=== PATIENT | female | born 1940 | race Caucasian/White ===

== ENCOUNTER → 2023-12-29 11:02 | Outpatient (REF) | payer OTHER, SELFPAY | LOC: HWRAD 11:02 | PROVIDERS: ATTENDING PHYSICIAN Nurse Practitioner Adult Health | DX: K59.01 Slow transit constipation (principal) | CPT/HCPCS: 74018 ==

== ENCOUNTER 2024-01-05 14:36 | Emergency (ER) | payer OTHER, SELFPAY ==
[2024-01-05 14:40] VITALS: BP 162/68
[2024-01-05 15:16] LABS: % Basophils 0.8 % (0-2); % Eosinophils 6.5 % (0-6); % Immature Granulocytes 0.2 % (0-0.5); % Lymphocytes 20.2 % (20.5-51.1); % Monocytes 9.8 % (1.7-9.3); % Neutrophils 62.5 % (42.2-75.2); Absolute Basophils 0.1 10^3/uL (0-0.2); Absolute Eosinophils 0.4 10^3/uL (0-0.7); Absolute Lymphocytes 1.3 10^3/uL (1.2-3.4); Absolute Monocytes 0.6 10^3/uL (0.1-0.6); Hematocrit 37.9 % (37.0-47.0); Hemoglobin 12.6 g/dL (12.0-16.0); Mean Corp Hgb Conc. 33.2 g/dL (33.0-37.0); Mean Corpuscular Hgb 30.7 pg (27.0-31.0); Mean Corpuscular Volume 92.2 fL (81.0-99.0); Mean Platelet Volume 9.5 fL (7.4-10.4); Nucleated Red Blood Cells % 0 %; Platelet Count 336 10^3/uL (130-400); Red Blood Cell Count 4.11 10^6/uL (4.20-5.40); White Blood Cell Count 6.4 10^3/uL (4.8-10.8)
[2024-01-05 15:30] LABS: ALT (SGPT) 40 U/L (0-35); AST (SGOT) 31 U/L (14-36); Albumin 3.8 g/dl (3.5-5.0); Alkaline Phosphatase 94 U/L (38-126); Blood Urea Nitrogen 23 mg/dl (7-17); Calcium 10.4 mg/dl (8.4-10.2); Carbon Dioxide 25 mmol/L (22-30); Chloride 101 mmol/L (98-107); Glucose 99 mg/dl (70-99); Potassium 4.2 mmol/L (3.5-5.1); Sodium 136 mmol/L (135-145); Total Bilirubin 0.6 mg/dl (0.2-1.3); Total Protein 7.3 g/dl (6.3-8.2); eGFR > 60.00
[2024-01-05 15:40] LABS: Troponin I < 0.012 ng/ml
--- NOTE | 2024-01-05 16:49 | ED.GENMED ---
History of Present Illness
<Astrid Barry [employer]ING - Last Filed: 01/06/24 09:08>
General
Chief Complaint: Breathing Problem
Source: patient
Exam Limitations: none
Time Seen by Provider: 01/05/24 16:48
Nursing documentation reviewed up to this point in time: agreed with
Travel History
Have you had any contact with someone who has COVID-19?: No
Do you have any symptoms of coronavirus? Fever > 100 degrees, chills, cough, shortness of breath, sore throat, loss of taste or smell, muscle aches, or headache?: No
History of Present Illness
History of Present Illness:
83-year-old female with history of CVA, sciatica, HTN, HLD, anemia, recurrent UTI, anxiety presents stating 'I cannot breathe.' She states her voice became raspy and she has been short of breath with even bending over for the past 3 days. She
states she 'got really out of breath going up the steps and that never happened before.' Denies abd pain, n/v/d/c. No UTI symptoms
Denies chest pain other than mid chest wall where she hit the area with shovel handle 2 wks ago.
States she saw her PCP Dr. Lauren and was sent here for a chest CT.
Denies chest pain other than mid chest wall where she hit the area with shovel handle 2 wks ago.
Past History
<Astrid Barry [employer] - Last Filed: 01/06/24 09:08>
Past History
ED Past Medical History: CVA, GERD and Other (arthritis)
Social History
Tobacco: Non-smoker
Personal: Single
Living: alone
Review of Systems
<Astrid Barry [employer] - Last Filed: 01/06/24 09:08>
Review of Systems
Allergies reviewed?: Yes
All Other Systems: ROS reviewed and negative except as documented in HPI and ROS
Constitutional: Denies fever or fatigue
Respiratory: Reports trouble breathing (Dyspnea on exertion); Denies cough
Cardiac: Reports chest pain (Mid chest wall pain from contusion 2 weeks ago); Denies diaphoresis, palpitations or syncope
ABD/GI: Denies abdominal pain, nausea or vomiting
: Denies dysuria or difficulty voiding
Musculoskeletal: Reports no symptoms
Skin: Reports no symptoms
Neurological: Reports no symptoms
Phy Exam
<Astrid Barry, [employer] - Last Filed: 01/06/24 09:08>
Physical Exam
Physical Exam:
GENERAL: No acute distress. A&Ox3.
CONSTITUTIONAL: Afebrile.
EYES: clear, conjunctivae normal
Neck: Supple
ENMT: moist mucus membranes, Pharynx nl
RESPIRATORY: Regular respirations, nonlabored, lungs clear. Pulse ox 96% RA
CARDIOVASCULAR: Regular rate and rhythm, no murmurs, no rubs.
GI: Soft, nontender, normal BS
MUSCULOSKELETAL: Mid sternum tenderness, no discoloration or swelling. Moves with ease. Well perfused.
SKIN: Warm, dry, pink
PSYCH: Normal mood and affect. Well kept, interactive and appropriate
NEUROLOGIC: Awake, alert and oriented. No focal neurological deficits
Scores
<Astrid Barry, [employer] - Last Filed: 01/06/24 09:08>
Heart Failure Risk
Heart Failure Risk Score: Not Applicable
Course
<Astrid Barry, [employer] - Last Filed: 01/06/24 09:08>
Orders/Labs/Results
Orders:
Orders
01/05/24 14:42
CXR2 [CR Chest - 2 Views ] Urgent
Comment:
Reason For Exam: sob for three days
01/05/24 14:48
Complete Blood Count/With Diff Urgent
Comprehensive Metabolic Panel Urgent
NT-proBNP Urgent
Comment: ADD ON
Troponin I Urgent
01/05/24 16:48
Add On- LAB Urgent
Tests Added?: BNP
01/05/24 16:58
CT Chest Pe Study Urgent
Comment:
Reason For Exam: CRUZ new
01/05/24 17:13
Electrocardiogram (*1) Urgent
Reason for Study: Shortness of Breath
EKG- Treatment ONCE
01/05/24 17:24
COVID-19 Antigen Urgent
Source: Nasal Swab
01/05/24 17:25
Influenza A+B Rapid Molecular Urgent
ENE Source: Nasal Swab
Specimen Description:
01/05/24 17:30
D-Dimer Urgent
01/05/24 20:30
Amoxicillin 875 mg/Clav 125 mg [Augmentin 875 mg/125 mg] 1 tablet PO NOW STA
Doxycycline [Vibramycin] 100 mg PO NOW STA
Abnormal Lab Results
01/05/24 01/05/24
14:48 17:30
RBC 4.11 L 10^6/uL
(4.20-5.40)
Lymphocytes % 20.2 L %
(20.5-51.1)
Monocytes % 9.8 H %
(1.7-9.3)
Eosinophils % 6.5 H %
(0-6)
D-Dimer 3.43 H ug/mlFEU
(0.00-0.50)
BUN 23 H mg/dl
(7-17)
Calcium 10.4 H mg/dl
(8.4-10.2)
ALT 40 H U/L
(0-35)
01/05/24 14:48
01/05/24 14:48
Vital Signs
Initial and Last Documented VS:
Initial Vital Signs
Temp Pulse Resp Pulse Ox
97.7 F 79 16 96
01/05/24 14:38 01/05/24 14:38 01/05/24 14:38 01/05/24 14:38
Last Documented Vital Signs
Temp Pulse Resp BP Pulse Ox
97.7 F 79 15 132/69 96
01/05/24 14:38 01/05/24 20:00 01/05/24 20:00 01/05/24 20:00 01/05/24 20:00
<Saulo Jones, DO - Last Filed: 01/06/24 12:39>
Orders/Labs/Results
Orders:
Orders
01/05/24 14:42
CXR2 [CR Chest - 2 Views ] Urgent
Comment:
Reason For Exam: sob for three days
01/05/24 14:48
Complete Blood Count/With Diff Urgent
Comprehensive Metabolic Panel Urgent
NT-proBNP Urgent
Comment: ADD ON
Troponin I Urgent
01/05/24 16:48
Add On- LAB Urgent
Tests Added?: BNP
01/05/24 16:58
CT Chest Pe Study Urgent
Comment:
Reason For Exam: CRUZ new
01/05/24 17:13
Electrocardiogram (*1) Urgent
Reason for Study: Shortness of Breath
EKG- Treatment ONCE
01/05/24 17:24
COVID-19 Antigen Urgent
Source: Nasal Swab
01/05/24 17:25
Influenza A+B Rapid Molecular Urgent
ENE Source: Nasal Swab
Specimen Description:
01/05/24 17:30
D-Dimer Urgent
01/05/24 20:30
Amoxicillin 875 mg/Clav 125 mg [Augmentin 875 mg/125 mg] 1 tablet PO NOW STA
Doxycycline [Vibramycin] 100 mg PO NOW STA
Abnormal Lab Results
01/05/24 01/05/24
14:48 17:30
RBC 4.11 L 10^6/uL
(4.20-5.40)
Lymphocytes % 20.2 L %
(20.5-51.1)
Monocytes % 9.8 H %
(1.7-9.3)
Eosinophils % 6.5 H %
(0-6)
D-Dimer 3.43 H ug/mlFEU
(0.00-0.50)
BUN 23 H mg/dl
(7-17)
Calcium 10.4 H mg/dl
(8.4-10.2)
ALT 40 H U/L
(0-35)
01/05/24 14:48
01/05/24 14:48
Vital Signs
Initial and Last Documented VS:
Initial Vital Signs
Temp Pulse Resp Pulse Ox
97.7 F 79 16 96
01/05/24 14:38 01/05/24 14:38 01/05/24 14:38 01/05/24 14:38
Last Documented Vital Signs
Temp Pulse Resp BP Pulse Ox
97.7 F 79 15 132/69 96
01/05/24 14:38 01/05/24 20:00 01/05/24 20:00 01/05/24 20:00 01/05/24 20:00
<Astrid Barry [employer] - Last Filed: 01/06/24 09:08>
MDM/Problems Addressed
Differential Diagnosis Includes:
PNA, CHF, Covid, PE
MDM/Problems Addressed:
83-year-old female with history of TIA, sciatica, HTN, HLD, anemia, recurrent UTI, anxiety presents stating 'I cannot breathe.' She states her voice became raspy and she has been short of breath with even bending over for the past 3 days. She
states she 'got really out of breath going up the steps and that never happened before.' Denies abd pain, n/v/d/c. No UTI symptoms
Denies chest pain other than mid chest wall where she hit the area with shovel handle 2 wks ago.
States she saw her PCP Dr. Lauren and was sent here for a chest CT.
No recent travel. No history of clots. Takes ASA 81 mg daily post TIA
Patient is a point alert pleasant 83-year-old with increasing dyspnea on exertion past 3 to 4 days.
No risk factor for PE but her PCP sent her here from his office specifically to get a PE chest CT
CBC normal
CMP with no clinically significant abnormality
Troponin normal
COVID: Negative
01/05/2024 1837 PM
D-dimer elevated at 3.[address] scan for PE study.
Case discussed with Dr. Jones who will assume care from this point.
Chronic conditions affecting care: HTN
<DO Jenny Rodriguez Last Filed: 01/06/24 12:39>
*Radiology
Radiology exam reviewed: radiology read reviewed (CT chest shows small bilateral pleural effusions, consolidation versus atelectasis)
*Pulse Oximetry
Patient hypoxic: no
*EKG
Interpreted by ED Provider?: Yes
EKG Intrepretation Date: 01/05/24
EKG Intrepretation Time: 20:05
Interpretation: normal
Comparison EKG: no comparison EKG present
Heart Rate: 75
Rate: normal
Rhythm: sinus
[place]: normal axis
Interval: normal interval
QRS Pattern: normal QRS
Ischemia: no ischemia
*Museum Tour Guide Interpretation
Rate: normal
Interpretation: normal
Heart Rate: 74
Rhythm: sinus
*Critical Care Note
Total Time (30-74mins, 75-104mins- exclusive of procedures): Not Applicable
<DO Jenny Rodriguez Last Filed: 01/06/24 12:39>
Patient Management
Social determinants of health affecting care: Living situation and Strong social support
Discussion with other providers: PCP (D/w Dr. Bain who will f/u in office)
Escalation/DeEscalation of care consider admission/obs:
admit not indicated
ED Attending Note
<Astrid Barry, [employer] - Last Filed: 01/06/24 09:08>
-
Portions of this chart may have been created with voice recognition software.� Occasional wrong word or��sound alike� substitutions may have occurred due to the inherent limitations of voice recognition software.
<Saulo Jones, - Last Filed: 01/06/24 12:39>
ED Attending Note
Patient seen and examined by attending physician: Yes
ED Attending Note:
I have reviewed and agree with history and treatment plan by Marielle barry. My exam revealed clear lungs bilaterally, no signs of respiratory distress. Patient afebrile. Discussed with patient's primary care physician, who will follow-up in office.
Bilateral pleural effusions questionable atelectasis versus consolidation. Treat with Augmentin and doxycycline, follow-up with primary care.
Discharge Plan
Departure
Patient Disposition: Home (Routine Discharge)
Date of Disposition: 01/05/24
Time of Disposition: 20:22
Patient with high blood pressure during this ER visit?: Yes
Condition: Good
Discharge Problem:
Pleural effusion
Instructions: Pneumonia in adults, Pleural effusion
Prescriptions:
New
amoxicillin-pot clavulanate 875-125 mg tablet
1 tab PO BID Qty: 14 0RF
doxycycline hyclate 100 mg capsule
100 mg PO BID 14 Days Qty: 28 0RF
No Action
alprazolam 0.25 MG tablet
0.25 mg PO PRN PRN (Reason: anxiety)
aspirin [Trcae Low Dose Aspirin] 81 MG tablet,delayed release (DR/EC)
81 mg PO HS
acetaminophen [Tylenol Extra Strength] 500 MG tablet
500 mg PO Q4HPRN PRN (Reason: pain)
pantoprazole 40 MG tablet,delayed release (DR/EC)
40 mg PO DAILY PRN (Reason: when taking aleve)
naproxen sodium [Aleve] 220 MG tablet
220 mg PO PRN PRN (Reason: pain)
rosuvastatin 10 MG tablet
10 mg PO QPM
losartan 50 MG tablet
50 mg PO DAILY
ascorbic acid (vitamin C) [Vitamin C] 1,000 MG tablet
1,000 mg PO DAILY
melatonin 5 MG tablet
5 mg PO HS
[id number]-htenc-calcium carb-K1 [Women's 50 Plus Multivitamin] 1 EACH tablet
1 ea PO DAILY
Cranberry Extract
1 tab PO DAILY
Vitamin B12:
1 tab PO DAILY
Vitamin D3
1 tab PO DAILY
Referrals:
Devaughn Bain CRNP [Family Provider] -
Interventions
Interventions:
*Risk Screen - Suicide Last Done: 01/05/24 17:06
*General Assessment Last Done: 01/05/24 17:06
*Neglect/Abuse Screening Last Done: 01/05/24 17:06
ED- Fall Risk Assessment Last Done: 01/05/24 17:09
*ED COVID-19 Vaccine History Last Done: 01/05/24 14:38
*Nursing Disposition Last Done: 01/05/24 20:56
ED- Cardiac Assessment Last Done: 01/05/24 17:09
ED- Pulmonary Assessment Last Done: 01/05/24 17:09
Discharge Date and Time
Discharge Date/Time: 01/05/24 21:29
[2024-01-05 17:06] VITALS: BMI 28.8
[2024-01-05 17:25] VITALS: BP 135/70
[2024-01-05 18:00] VITALS: BP 136/59
[2024-01-05 18:10] LABS: COVID-19 Antigen Negative (Negative)
[2024-01-05 18:17] LABS: D-Dimer 3.43 ug/mlFEU (0.00-0.50)
[2024-01-05 19:00] VITALS: BP 126/60
[2024-01-05 20:00] VITALS: BP 132/69
[2024-01-05] MEDS: AUGMENTIN 875 MG/125 MG 1 TABLET PO (20:51)
[2024-01-05] MEDS: VIBRAMYCIN 100 MG PO (20:51)
[2024-01-05 21:03] LABS: NT-proBNP 26.5 pg/ml
== END 2024-01-05 21:29 | disposition home or self-care (01) ==
LOC: EMR 14:36
PROVIDERS: Emergency Medicine; Registered Nurse; EMERGENCY PHYSICIAN Emergency Medicine; FAMILY PHYSICIAN Registered Nurse
DX: J90 Pleural effusion, not elsewhere classified (principal); K21.9 Gastro-esophageal reflux disease without esophagitis; F41.9 Anxiety disorder, unspecified; I11.0 Hypertensive heart disease with heart failure; I50.9 Heart failure, unspecified; Z79.82 Long term (current) use of aspirin; Z86.73 Personal history of transient ischemic attack (TIA), and cerebral infarction without residual deficits; Z87.440 Personal history of urinary (tract) infections
CPT/HCPCS: 99284; 71046; 71275; 80053; 83880; 84484; 85025; 85379; 87502; 87811; 93005; Q9967

== ENCOUNTER → 2024-01-08 09:37 | Outpatient (REF) | payer OTHER, SELFPAY | LOC: RAD 09:37 | PROVIDERS: ATTENDING PHYSICIAN Registered Nurse | DX: J18.9 Pneumonia, unspecified organism (principal) | CPT/HCPCS: 71046 ==

== ENCOUNTER → 2024-02-05 10:02 | Outpatient (REF) | payer OTHER, SELFPAY | LOC: RAD 10:02 | PROVIDERS: ATTENDING PHYSICIAN Registered Nurse | DX: J18.9 Pneumonia, unspecified organism (principal) | CPT/HCPCS: 71046 ==

== ENCOUNTER → 2024-03-03 10:12 | Outpatient (REF) | payer OTHER, SELFPAY | LOC: RAD 10:12 | PROVIDERS: ATTENDING PHYSICIAN Registered Nurse | DX: J18.9 Pneumonia, unspecified organism (principal) | CPT/HCPCS: 71046 ==

== ENCOUNTER 2024-03-29 15:44 | Inpatient (IN) | payer OTHER, SELFPAY ==
[2024-03-29] VITALS (9 sets, daily range): BP systolic 155–178; BP diastolic 61–76; BMI 28.1; BMI 27.6
[2024-03-29 12:18] LABS: % Eosinophils 3.4 % (0-6); % Immature Granulocytes 0.2 % (0-0.5); % Lymphocytes 24.2 % (20.5-51.1); % Neutrophils 64.2 % (42.2-75.2); Absolute Basophils 0.1 10^3/uL (0-0.2); Absolute Eosinophils 0.2 10^3/uL (0-0.7); Absolute Lymphocytes 1.3 10^3/uL (1.2-3.4); Absolute Monocytes 0.4 10^3/uL (0.1-0.6); Absolute Neutrophils 3.4 10^3/uL (1.4-6.5); Hematocrit 40.1 % (37.0-47.0); Hemoglobin 13.1 g/dL (12.0-16.0); Mean Corp Hgb Conc. 32.7 g/dL (33.0-37.0); Mean Corpuscular Hgb 30.2 pg (27.0-31.0); Mean Corpuscular Volume 92.4 fL (81.0-99.0); Mean Platelet Volume 10.2 fL (7.4-10.4); Nucleated Red Blood Cells % 0 %; Platelet Count 232 10^3/uL (130-400); Red Blood Cell Count 4.34 10^6/uL (4.20-5.40); Red Cell Dist. Width 14.6 % (11.5-14.5); White Blood Cell Count 5.3 10^3/uL (4.8-10.8)
[2024-03-29 12:24] LABS: INR 1.01; PT 13.2 Sec (11.4-14.6)
[2024-03-29 12:25] LABS: ALT (SGPT) 27 U/L (0-35); AST (SGOT) 29 U/L (14-36); Albumin 4.4 g/dl (3.5-5.0); Alkaline Phosphatase 68 U/L (38-126); Blood Urea Nitrogen 27 mg/dl (7-17); Calcium 10.3 mg/dl (8.4-10.2); Carbon Dioxide 26 mmol/L (22-30); Chloride 108 mmol/L (98-107); Glucose 104 mg/dl (70-99); Potassium 4.5 mmol/L (3.5-5.1); Sodium 142 mmol/L (135-145); Total Bilirubin 0.5 mg/dl (0.2-1.3); Total Protein 7.5 g/dl (6.3-8.2); eGFR > 60.00
--- NOTE | 2024-03-29 13:18 | ED.CVA ---
History of Present Illness
General
Chief Complaint: CVA/TIA Symptoms
Source: patient and spouse
Exam Limitations: none
Time Seen by Provider: 03/29/24 12:55
Nursing documentation reviewed up to this point in time: agreed with
Onset of Stroke Symptoms
Onset of symptoms known: Yes
Date of onset of symptoms: 03/29/24
Travel History
Have you had any contact with someone who has COVID-19?: No
Do you have any symptoms of coronavirus? Fever > 100 degrees, chills, cough, shortness of breath, sore throat, loss of taste or smell, muscle aches, or headache?: No
History of Present Illness
History of Present Illness:
83-year-old female presents the emergency department complaining of left eye vision loss. She saw ophthalmology, and was sent to ED. No other weakness or deficits noted, except she is having difficulty walking.
Past History
Past History
ED Past Medical History: CVA, GERD and Other (arthritis)
ED Past Surgical History:
Social History
Tobacco: Non-smoker
Personal: Single
Living: alone
Review of Systems
Review of Systems
Allergies reviewed?: Yes
All Other Systems: Not applicable
Constitutional: Reports no symptoms
EENT: Reports no symptoms
Respiratory: Reports no symptoms
Cardiac: Reports no symptoms
ABD/GI: Reports no symptoms
: Reports no symptoms
Musculoskeletal: Reports no symptoms
Skin: Reports no symptoms
Neurological: Reports other (difficulty walking, left eye vision loss)
Endocrine: Reports no symptoms
Hematologic/Lymphatic: Reports no symptoms
Psychiatric: Reports no symptoms
Phy Exam
Physical Exam
Physical Exam:
Physical Exam
General: no apparent distress, not acutely ill
Neck: supple. no meningeal signs. normal posterior pharynx
Heart: s1/s2 regular rate and rhythm, no murmur. equal radial
pulses.
HEENT: Pupils equal round reactive to light, EOMI
Lungs: no acute respiratory distress. clear bilaterally
Abdomen: normal bowel sounds. not tender. no CVAT
Neuro: alert and oriented. no focal neurological deficits cranial nerves II through XII intact
Skin: no rash
Psychiatric: well kept. interactive and cooperative
Extremities: no edema. no calf tenderness. negative homans. good distal pulses
Scores
Thrombolytic Contraindication
Inclusion and Exclusion criteria reviewed: Yes
Reasons for NON-Tx with Thrombolytics ABSOLUTE Exclusions: Greater than 4.5 hrs from onset of sxs
Course
Orders/Labs/Results
Orders:
Orders
03/29/24 12:03
C-Reactive Protein Urgent
Comment: ADDED
Complete Blood Count/With Diff Urgent
Comprehensive Metabolic Panel Urgent
Erythrocyte Sed Rate Urgent
Comment: ADDED
PT/INR [Prothrombin Time] Urgent
03/29/24 13:13
Add On- LAB Urgent
Tests Added?: esr, crp
03/29/24 13:17
CT Head W/o Iv Contrast Urgent
Comment:
Reason For Exam: vision loss left eye, 3 am
03/29/24 13:21
CT Head & Neck Angio W/wo IV Urgent
Comment:
Reason For Exam: vision loss left eye
03/29/24 13:58
Clopidogrel Bisulfate [Plavix] 300 mg PO NOW STA
03/30/24 08:00
Clopidogrel Bisulfate [Plavix] 75 mg PO DAILY
Abnormal Lab Results
03/29/24
12:03
MCHC 32.7 L g/dL
(33.0-37.0)
RDW 14.6 H %
(11.5-14.5)
Chloride 108 H mmol/L
(98-107)
BUN 27 H mg/dl
(7-17)
Glucose 104 H mg/dl
(70-99)
Calcium 10.3 H mg/dl
(8.4-10.2)
03/29/24 12:03
03/29/24 12:03
Vital Signs
Initial and Last Documented VS:
Initial Vital Signs
Temp Pulse Resp BP Pulse Ox
98.4 F 60 18 164/73 99
03/29/24 11:54 03/29/24 11:54 03/29/24 11:54 03/29/24 11:54 03/29/24 11:54
Last Documented Vital Signs
Temp Pulse Resp BP Pulse Ox
98.4 F 62 16 166/63 97
03/29/24 11:54 03/29/24 15:00 03/29/24 15:00 03/29/24 15:00 03/29/24 15:00
MDM/Problems Addressed
Differential Diagnosis Includes:
cva, intracranial hemorrhage
MDM/Problems Addressed:
83-year-old female with left eye vision loss. Suspect CVA. Admit to hospitalist.
Chronic conditions affecting care: HTN
Acute Exacerbation and/or Progression of Chronic Illness: HTN
*Pulse Oximetry
Patient hypoxic: no
*General Inspector Interpretation
Rate: normal
Interpretation: normal
Heart Rate: 62
Rhythm: sinus
*Critical Care Note
Total Time (30-74mins, 75-104mins- exclusive of procedures): Not Applicable
Data Reviewed
Review of Other/Old Records Reveals: Radiology Studies (prior carotid US nad)
Source: records
Prescriptions/Medications Considered But Not Given:
tnk not indicated
Patient Management
Social determinants of health affecting care: Living situation
Escalation/DeEscalation of care consider admission/obs:
admit indicated
ED Attending Note
-
Portions of this chart may have been created with voice recognition software.� Occasional wrong word or��sound alike� substitutions may have occurred due to the inherent limitations of voice recognition software.
Discharge Plan
Departure
Patient Disposition: Admit
Date of Disposition: 03/29/24
Time of Disposition: 15:09
Admit to: Telemetry
Presentation/result/management discussed w/ accepting MD/DO: Hospitalist
Patient with high blood pressure during this ER visit?: Yes
Condition: Good
Discharge Problem:
CVA (cerebral infarction)
Prescriptions:
No Action
ascorbic acid (vitamin C) [Vitamin C] 1,000 mg Tablet
1,000 mg PO QPM
cyanocobalamin (vitamin B-12) 1,000 mcg Tablet
1,000 mcg PO QPM
aspirin 81 mg Tablet,Delayed Release (Dr/Ec)
81 mg PO HS
naproxen sodium [Aleve] 220 mg Tablet
220 mg PO DAILYPRN PRN (Reason: mild pain)
gabapentin 300 mg Capsule
300 mg PO HS
Hair,Skin and Nails Tablet
1 tab PO DAILY
naproxen 500 mg Tablet
500 mg PO DAILYPRN PRN (Reason: severe pain)
rosuvastatin 10 mg Tablet
10 mg PO HS
Systane (PF) 0.4-0.3 % Dropperette
1 drp BOTH EYES HS
Women's 50 Plus Multivitamin 400 mcg-500 mg calcium-20 mcg Tablet
1 tab PO QPM
cholecalciferol (vitamin D3)
1 tab PO Q48H@1700
cranberry extract
1 tab PO DAILY PRN (Reason: supplement)
losartan 50 mg Tablet
50 mg PO DAILY
Referrals:
Everton Guerrero Jr. DO [Family Provider] -
Interventions
Interventions:
*Risk Screen - Suicide Last Done: 03/29/24 11:54
*General Assessment Last Done: 03/29/24 11:54
*Neglect/Abuse Screening Last Done: 03/29/24 11:54
ED- Fall Risk Assessment Last Done: 03/29/24 13:12
*ED COVID-19 Vaccine History Last Done: 03/29/24 11:54
ED- Pulmonary Assessment Last Done: 03/29/24 13:12
ED- Neurological Assessment Last Done: 03/29/24 13:12
ED- Cardiac Assessment Last Done: 03/29/24 13:12
ED Swallowing Screen Last Done: 03/29/24 15:11
Discharge Date and Time
Print Language: [id number]
--- NOTE | 2024-03-29 13:40 | CON.NEURO4 ---
Addendum entered and electronically signed by Frederick Recio MD 03/29/24 15:35:
Studies reviewed.
I have personally examined the patient. I reviewed and agree with the STAGE SET UP WORKER's Note.
My addenda:
Awake, alert, interactive. No acute distress.
Speech intact.
Follows 2-step requests w/o difficulty. No tremor.
Extra-ocular movements grossly intact.
Facial movements full and symmetric. Hearing intact to normal conversational volume.
Normal UE movements bilaterally.
Neck: full ROM.
Chest: no dyspnea
Heart: no JVD
Ext: (-) Clubbing, (-) Cyanosis, (-) Edema
IMPRESSIONS/RECOMMENDATIONS:
Abrupt onset of lost vision in the left eye beginning at 0300 hrs. today
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
Continue patient's usual aspirin
Provide loading dose of clopidogrel followed by routine 75 mg daily
Continue rosuvastatin at 10 mg routinely
Rehabilitation evaluations for helpful workaround's
Goal of normotension
Goal of normoglycemia
Check MRI of brain for completeness
D/W patient / family
Will continue to follow pending results.
Original Note:
Documented by User: Trini Reyes NP 03/29/24 15:23
Consultation - Neurology 4
-
CONSULTING PHYSICIAN: Frederick Recio MD
REFERRING PHYSICIAN: ER/Dr. Jones
DICTATED BY: NIMA Morocho
DATE/TIME OF REQUEST: 03/29/24
DATE/TIME OF CONSULTATION: 03/29/24
Reason for Consultation: Left CRAO
History of Present Illness:
This is an 83-year-old right-handed female with a PMH of left frontal/parietal vertex ischemic stroke, TIA, HTN, and HLD who has presented to the hospital by referral of ophthalmology Dr. Augustin with report of sudden left eye vision loss/concern
for CRAO. Patient has been evaluated by our Neurology service twice in the past for stroke symptoms, first in 2013 (MRI brain positive for stroke), and then again in 2020 (MRI brain negative).
From previous evaluation by Dr. Rangel on 03/10/21:
'80-year-old female with a past history of TIA in 2013 consisting of right upper extremity weakness that resolved presents for evaluation for 'transient weakness and difficulty functioning.' She states that she was sitting in a chair when she
suddenly developed blurred vision, headache with 'pounding in her head,' 'feeling like she was going to have a bowel movement but didn't,' generalized weakness, shortness of breath with hyperventilation and 'difficulty using her phone, problems
finding the letter H to dial home' and loss of awareness for a few seconds to minutes. She had no clear associated convulsive seizure activity. She was able to call for her to get help and her speech was fluent. She states that she also
called her granddaughter who ended up calling the [place] police on her behalf. At the time EMS arrived the majority of her symptoms had cleared and she is currently back to baseline.
Regarding seizure risk factors. She has no family history of epilepsy area she has never had a seizure in the past. She is a history of head trauma to her left face 4-5 years ago. No history of developmental delay or febrile seizure.'
MRI brain in 2013 revealed an acute left frontal/parietal vertex ischemic stroke. MRI brain in 2020 was negative for any acute findings. Patient had a LINQ monitor implanted after her stroke in 2013, which was unremarkable and in 2018.
This morning (03/29/24), patient reports waking up at 0300 to use the bathroom. She made it to the bathroom without any issues, then on the way back to bed she reports developing a sudden onset of complete vision loss in her left eye only. Initially
her vision was completely black. So proceeded to go back to bed and when she woke up later this morning her left eye vision had turned to a jurado/beige color all over with a small blinking octagon shape in her left lateral vision. She denies any
vision changes in her right eye. She called her candy mixer and was evaluated urgently by Dr. Augustin who was concerned for a left eye CRAO and referred her to the ER for evaluation. Patient denies any headache, dizziness, speech/swallow
difficulty, numbness, weakness, nausea, chest pain, palpitations, and shortness of breath. She does note that her gait feels slightly unsteady, she attributes this to getting used to only having vision in one eye. She reports being sick with
pneumonia and pleural effusions over the past few months but she has been feeling at her baseline for several weeks now. She completed DAPT with aspirin and Plavix after her TIA in 2020 and notes having some minor bleeding while on this. Aspirin
efficacy testing was obtained in 2020 and demonstrated efficacy. She has continued on aspirin 81mg daily since and denies missing any doses. She denies any previous episodes of complete vision loss but does reports seeing a blue and red firework
effect in her vision years ago that resolved in seconds, she is unsure if this was in one or both eyes.
Past Medical History: L frontal/parietal vertex ischemic stroke 2013, TIA 2020, HTN, HLD, GERD, arthritis, borderline low B12 level
Surgical History: , LINQ ( 2018), b/l cataract extractions
Family History: Reviewed and noncontributory.
Social History: Denies tobacco and illicit drug use. Occasional alcohol.
Allergies: Atorvastatin, celecoxib, sulfamethoxazole.
Home Medications: See below.
Review of Symptoms:
Patient denies any fever, headache, chest pain, shortness of breath, GI or symptoms.
�Per the HPI.�All systems are reviewed negative except above.
Physical Exam:
The patient is afebrile, abdomen is nondistended, breathing is unlabored, skin is warm and dry, no edema.
NIH Stroke Scale:
I performed the NIH stroke scale on the patient on 03/29/24 at 1345. The patient scored 3 points on the NIH stroke scale assessment, which were assigned as follows: See below.
Neurologic Examination:
The patient is awake, alert and oriented x 3. She is able to follow commands and answer questions appropriately. There is no aphasia or dysarthria. On cranial nerve assessment, pupils are 3 mm bilateral, round and reactive to light and
accommodation. Visual aviles are full in the right eye, absent in the left eye. Extraocular movements are intact. Facial sensations are intact and bilaterally symmetrical, there is no facial asymmetry. Hearing is intact bilaterally to normal
conversation volume. Tongue palate and uvula are midline. Sternocleidomastoid strengths are full bilaterally. Motor strengths are 5/5 bilateral upper and lower extremities on medical research [place] scale. There is no drift or involuntary movement
noted. There was no extinction noted on double simultaneous stimulation. Coordination is intact by finger to nose bilaterally.
Lab Results: See below.
Neuro Imaging:
1. CT Head pending
2. CTA head/neck pending
Differentials for the patient's presentation include:
1. Left CRAO likely producing patient's vision loss.
2. Structural brain or vascular abnormality possibly producing left eye vision loss but less likely.
Patient has the following risk factors for their symptoms: Hx CVA, HLD, HTN
IV Tenecteplase/IAT candidacy: She is not a candidate due to outside of time window, no LVO, NIHSS <6.
Recommendations:
-Provide a loading dose of Plavix 300mg x1 now. Continue DAPT with aspirin 81mg and Plavix 75mg daily for 21 [address]
-CT head, CTA head/neck pending.
-MRI brain noncontrast pending.
-Permissive hypertension SBP<220, DBP<120 until 03/30/24 at 0300, then goal normotension.
-LDL goal <70. Lipid panel pending. Continue home rosuvastatin 10mg daily for now.
-Goal normoglycemia, hbA1c is pending.
-Checking blood work for metabolic abnormalities.
-NIHSS and neurological checks per unit guidelines.
-Provide patient with a stroke education packet.
-PT/OT/ST evaluations.
-DVT prophylaxis.
-Will follow pending results.
Discussed patient care with: Dr. Recio, the patient, patient's spouse
Vital Signs and Labs
-
Vital Signs and Labs:
Vital Signs
Temp Pulse Resp BP Pulse Ox
98.4 F 62 16 166/63 97
03/29/24 11:54 03/29/24 15:00 03/29/24 15:00 03/29/24 15:00 03/29/24 15:00
Lab Results
03/29/24 12:03
03/29/24 12:03
PT 13.2 Sec (11.4-14.6) 03/29/24 12:03
INR 1.01 03/29/24 12:03
Sodium 142 mmol/L (135-145) 03/29/24 12:03
Potassium 4.5 mmol/L (3.5-5.1) 03/29/24 12:03
BUN 27 mg/dl (7-17) H 03/29/24 12:03
Glucose 104 mg/dl (70-99) H 03/29/24 12:03
Calcium 10.3 mg/dl (8.4-10.2) H 03/29/24 12:03
Medications
-
Active Medications
Generic Name Dose Route Start Last Admin
Trade Name Freq PRN Reason Stop Dose Admin
Clopidogrel Bisulfate 75 mg 03/30/24 08:00
Clopidogrel 75 Mg Tablet PO 04/19/24 08:01
DAILY LUZ MARINA
Home Medications
�Medication �Instructions �Recorded
ascorbic acid (vitamin C) 1,000 mg 1,000 mg PO QPM Supplement 03/29/24
tablet (Vitamin C)
aspirin 81 mg tablet,delayed 81 mg PO HS Blood Clot 03/29/24
release Prevention/Tx
cholecalciferol (vitamin D3) 1 tab PO Q48H@1700 Supplement 03/29/24
cranberry extract 1 tab PO DAILY PRN supplement 03/29/24
cyanocobalamin (vitamin B-12) 1,000 mcg PO QPM Supplement 03/29/24
1,000 mcg tablet
gabapentin 300 mg capsule 300 mg PO HS pain 03/29/24
losartan 50 mg tablet 50 mg PO DAILY Blood Pressure 03/29/24
kregllka-omx-rhlvl ac 400 1 tab PO QPM Supplement 03/29/24
mcg-calcium carb 500 mg-vit K1 20
mcg tablet (Women's 50 Plus
Multivitamin)
multivitamin with minerals 1 tab PO DAILY Supplement 03/29/24
(Hair,Skin and Nails tablet)
naproxen 500 mg tablet 500 mg PO DAILYPRN PRN severe pain 03/29/24
naproxen sodium 220 mg tablet 220 mg PO DAILYPRN PRN mild pain 03/29/24
(Aleve)
peg 400-propylene glycol (PF) 0.4 1 drp BOTH EYES HS dry eyes 03/29/24
%-0.3 % eye drops in a dropperette
(Systane (PF))
rosuvastatin 10 mg tablet 10 mg PO HS high cholesterol 03/29/24
NIH Stroke Score
Subsequent NIH Scale
Date of Subsequent NIH Scale: 03/29/24
Time of Subsequent NIH Scale: 13:45
NIH Stroke Score
Level of Consciousness: 0 - Alert
LOC Questions: 0-Answers both correctly
LOC Commands: 0-Performs both correctly
Best Horizontal Gaze: 0-Normal
Visual Aviles: 2=Full hemianopia
Facial Palsy: 0=Normal, symmetrical
Motor - Right Arm: 0=No drift 10 seconds
Motor - Left Arm: 0=No drift 10 seconds
Motor - Right Le-No drift 5 seconds
Motor - Left Le-No drift 5 seconds
Limb Ataxia: 0-Absent
Sensation: 0-Normal
Best Language: 0-No aphasia
Dysarthria: 0-Normal
Extinction and Inattention: 0-No abnormality
Total Score:: [address] [place] (mRS) Score
Modified [place] Scale (mRS): Moderate disability. Requires some help, able to walk unassisted.
Score: 3

Documented by User: Frederick Recio MD 03/29/24 15:32
Consultation - Neurology 4
-
CONSULTING PHYSICIAN: Frederick Recio MD
REFERRING PHYSICIAN: ER/Dr. Jones
DICTATED BY: NIMA Morocho
DATE/TIME OF REQUEST: 03/29/24
DATE/TIME OF CONSULTATION: 03/29/24
Reason for Consultation: Left CRAO
History of Present Illness:
This is an 83-year-old right-handed female with a PMH of left frontal/parietal vertex ischemic stroke, TIA, HTN, and HLD who has presented to the hospital by referral of ophthalmology Dr. Augustin with report of sudden left eye vision loss/concern
for CRAO. Patient has been evaluated by our Neurology service twice in the past for stroke symptoms, first in 2013 (MRI brain positive for stroke), and then again in 2020 (MRI brain negative).
From previous evaluation by Dr. Rangel on 03/10/21:
'80-year-old female with a past history of TIA in 2013 consisting of right upper extremity weakness that resolved presents for evaluation for 'transient weakness and difficulty functioning.' She states that she was sitting in a chair when she
suddenly developed blurred vision, headache with 'pounding in her head,' 'feeling like she was going to have a bowel movement but didn't,' generalized weakness, shortness of breath with hyperventilation and 'difficulty using her phone, problems
finding the letter H to dial home' and loss of awareness for a few seconds to minutes. She had no clear associated convulsive seizure activity. She was able to call for her to get help and her speech was fluent. She states that she also
called her granddaughter who ended up calling the [place] police on her behalf. At the time EMS arrived the majority of her symptoms had cleared and she is currently back to baseline.
Regarding seizure risk factors. She has no family history of epilepsy area she has never had a seizure in the past. She is a history of head trauma to her left face 4-5 years ago. No history of developmental delay or febrile seizure.'
MRI brain in 2013 revealed an acute left frontal/parietal vertex ischemic stroke. MRI brain in 2020 was negative for any acute findings. Patient had a LINQ monitor implanted after her stroke in 2013, which was unremarkable and in 2018.
This morning (03/29/24), patient reports waking up at 0300 to use the bathroom. She made it to the bathroom without any issues, then on the way back to bed she reports developing a sudden onset of complete vision loss in her left eye only. Initially
her vision was completely black. So proceeded to go back to bed and when she woke up later this morning her left eye vision had turned to a jurado/beige color all over with a small blinking octagon shape in her left lateral vision. She denies any
vision changes in her right eye. She called her candy mixer and was evaluated urgently by Dr. Augustin who was concerned for a left eye CRAO and referred her to the ER for evaluation. Patient denies any headache, dizziness, speech/swallow
difficulty, numbness, weakness, nausea, chest pain, palpitations, and shortness of breath. She does note that her gait feels slightly unsteady, she attributes this to getting used to only having vision in one eye. She reports being sick with
pneumonia and pleural effusions over the past few months but she has been feeling at her baseline for several weeks now. She completed DAPT with aspirin and Plavix after her TIA in 2020 and notes having some minor bleeding while on this. Aspirin
efficacy testing was obtained in 2020 and demonstrated efficacy. She has continued on aspirin 81mg daily since and denies missing any doses. She denies any previous episodes of complete vision loss but does reports seeing a blue and red firework
effect in her vision years ago that resolved in seconds, she is unsure if this was in one or both eyes.
Past Medical History: L frontal/parietal vertex ischemic stroke 2013, TIA 2020, HTN, HLD, GERD, arthritis, borderline low B12 level
Surgical History: , LINQ ( 2018), b/l cataract extractions
Family History: Reviewed and noncontributory.
Social History: Denies tobacco and illicit drug use. Occasional alcohol.
Allergies: Atorvastatin, celecoxib, sulfamethoxazole.
Home Medications: See below.
Review of Symptoms:
Patient denies any fever, headache, chest pain, shortness of breath, GI or symptoms.
�Per the HPI.�All systems are reviewed negative except above.
Physical Exam:
The patient is afebrile, abdomen is nondistended, breathing is unlabored, skin is warm and dry, no edema.
NIH Stroke Scale:
I performed the NIH stroke scale on the patient on 03/29/24 at 1345. The patient scored 3 points on the NIH stroke scale assessment, which were assigned as follows: See below.
Neurologic Examination:
The patient is awake, alert and oriented x 3. She is able to follow commands and answer questions appropriately. There is no aphasia or dysarthria. On cranial nerve assessment, pupils are 3 mm bilateral, round and reactive to light and
accommodation. Visual aviles are full in the right eye, absent in the left eye. Extraocular movements are intact. Facial sensations are intact and bilaterally symmetrical, there is no facial asymmetry. Hearing is intact bilaterally to normal
conversation volume. Tongue palate and uvula are midline. Sternocleidomastoid strengths are full bilaterally. Motor strengths are 5/5 bilateral upper and lower extremities on medical research [place] scale. There is no drift or involuntary movement
noted. There was no extinction noted on double simultaneous stimulation. Coordination is intact by finger to nose bilaterally.
Lab Results: See below.
Neuro Imaging:
1. CT Head pending
2. CTA head/neck pending
Differentials for the patient's presentation include:
1. Left CRAO likely producing patient's vision loss.
2. Structural brain or vascular abnormality possibly producing left eye vision loss but less likely.
Patient has the following risk factors for their symptoms: Hx CVA, HLD, HTN
IV Tenecteplase/IAT candidacy: She is not a candidate due to outside of time window, no LVO, NIHSS <6.
Recommendations:
-Provide a loading dose of Plavix 300mg x1 now. Continue DAPT with aspirin 81mg and Plavix 75mg daily for 21 [address]
-CT head, CTA head/neck pending.
-MRI brain noncontrast pending.
-Permissive hypertension SBP<220, DBP<120 until 03/30/24 at 0300, then goal normotension.
-LDL goal <70. Lipid panel pending. Continue home rosuvastatin 10mg daily for now.
-Goal normoglycemia, hbA1c is pending.
-Checking blood work for metabolic abnormalities.
-NIHSS and neurological checks per unit guidelines.
-Provide patient with a stroke education packet.
-PT/OT/ST evaluations.
-DVT prophylaxis.
-Will follow pending results.
Discussed patient care with: Dr. Recio, the patient, patient's spouse
NIH Stroke Score
NIH Stroke Score
Total Score:: 2
Modified [place] (mRS) Score
Score: 3
[2024-03-29 14:07] LABS: Erythrocyte Sed Rate 18 mm/hour (0-20)
[2024-03-29 14:20] LABS: C-Reactive Protein < 5.00 mg/L (0.0-10.00)
[2024-03-29] MEDS: PLAVIX 300 MG PO (15:16)
--- NOTE | 2024-03-29 15:16 | HPS.HSE ---
Family Physician
-
Family Physician: Everton Guerrero Jr.
Chief Complaint
-
left vision loss
History of Present Illness
83 year old with PMH for CVA, TIA, HTN, HLD presented to us with sudden left vision loss. she woke with left vision loss. she was evaluated by electric switch tester and sent in for evaluation. denied HILL, dizzy or syncopal episode. denied fever, chills,
chest pain, sob. denied abdominal pain, nausea, vomiting, diarrhea. Patient denied dysuria hematuria.
Head CT, CTA ordered in ER. Patient received a dose of Plavix in the ER. Admitting for further management
Medical History
Past Medical History
Past Medical History: Reports Other
Additional Past Medical History:
CVA, TIA, hypertension, hyperlipidemia, GERD, arthritis
Past Surgical History: Reports Other
Additional Past Surgical History:
Bilateral cataract extraction
Right rotator cuff surgery
Thyroid surgery right inguinal hernia repair
Social History
Tobacco: Non-smoker
Alcohol: None
Drug: None
Personal:
Living: With Family
Family History
Family History: Not pertinent
Allergies / Home Medications
Allergies reflects when Allergies were last updated in [facility].
Home Medications with original date entered in [facility]
Allergy/Medication List:
Allergies
Allergy/AdvReac Type Severity Reaction Status Date / Time
atorvastatin calcium Allergy blurred Verified 03/29/24 11:54
[From Lipitor] vision
celecoxib [From Celebrex] Allergy Shortness Verified 03/29/24 11:54
of Breath
/ numbiness
sulfamethoxazole Allergy 'dizzy, Verified 03/29/24 11:54
[From Bactrim] nausea,
whole body
hurt'
Home Medications
ascorbic acid (vitamin C) 1,000 mg tablet (Vitamin C) 1,000 mg PO QPM Supplement 03/29/24
aspirin 81 mg tablet,delayed release 81 mg PO HS Blood Clot Prevention/Tx 03/29/24
cholecalciferol (vitamin D3) 1 tab PO Q48H@1700 Supplement 03/29/24
cranberry extract 1 tab PO DAILY PRN supplement 03/29/24
cyanocobalamin (vitamin B-12) 1,000 mcg tablet 1,000 mcg PO QPM Supplement 03/29/24
gabapentin 300 mg capsule 300 mg PO HS pain 03/29/24
losartan 50 mg tablet 50 mg PO DAILY Blood Pressure 03/29/24
oljogzau-gov-aenik ac 400 mcg-calcium carb 500 mg-vit K1 20 mcg tablet (Women's 50 Plus Multivitamin) 1 tab PO QPM Supplement 03/29/24
multivitamin with minerals (Hair,Skin and Nails tablet) 1 tab PO DAILY Supplement 03/29/24
naproxen 500 mg tablet 500 mg PO DAILYPRN PRN severe pain 03/29/24
naproxen sodium 220 mg tablet (Aleve) 220 mg PO DAILYPRN PRN mild pain 03/29/24
peg 400-propylene glycol (PF) 0.4 %-0.3 % eye drops in a dropperette (Systane (PF)) 1 drp BOTH EYES HS dry eyes 03/29/24
rosuvastatin 10 mg tablet 10 mg PO HS high cholesterol 03/29/24
Review of Systems
-
Constitutional: Reports No Symptoms
EENT: Reports Other (Left vision loss)
Respiratory: Reports No Symptoms
Cardiac: Reports No Symptoms
Abdomen/GI: Reports No Symptoms
: Reports No Symptoms
Musculoskeletal: Reports No Symptoms
Skin: Reports No Symptoms
Neurological: Reports No Symptoms
Endocrine: Reports No Symptoms
Hematologic/Lymphatic: Reports No Symptoms
Psych: Reports No Symptoms
Physical Exam
Vital Signs
Vital Signs
Temp Pulse Resp BP Pulse Ox
98.4 F 62 16 166/63 97
03/29/24 11:54 03/29/24 15:00 03/29/24 15:00 03/29/24 15:00 03/29/24 15:00
Physical Exam
General: Well Developed, Well Nourished and No Apparent Distress
HEENT: NormoCephalic, Moist mucous membranes, Atraumatic and Other (vision loss in left eye)
Respiratory: Clear
Cardiac: S1/S2 and Regular Rhythm; No Murmur or Rub
GI: Soft, Non Tender, Non Distended and Normal Bowel Sounds; No Organomegaly
Rectal: Deferred by Provider
Musculoskeletal: No Clubbing, No Cyanosis and No Edema
Skin: No Rash
Neuro: Nonfocal/grossly intact
Laboratory Results
-
03/29/24 12:03
03/29/24 12:03
Laboratory Results
PT 13.2 Sec (11.4-14.6) 03/29/24 12:03
INR 1.01 03/29/24 12:03
Total Bilirubin 0.5 mg/dl (0.2-1.3) 03/29/24 12:03
AST 29 U/L (14-36) 03/29/24 12:03
ALT 27 U/L (0-35) 03/29/24 12:03
Alkaline Phosphatase 68 U/L (38-126) 03/29/24 12:03
Data Reviewed
-
Lab Data: Labs Reviewed by me
Impression/Plan
-
# Left eye vision loss rule out acute CVA
-Head neck CTA pending
-Head CT pending
-MRI of brain
-Permissive hypertension SBP less than 220, diastolic BP less than 120
-Obtain lipid profile
-Stroke protocol
-PT/OT consult
-Aspirin, statin, Plavix continued
-Neurology consult
#essential HTN
-Bp stable
-losartan continued
-allow permissive HTN
# Hyperlipidemia
-Statin continued
# DVT prophylaxis
-SCD
# CODE STATUS
-Full code
--- NOTE | 2024-03-29 15:21 | W.PN.UPDATE ---
Update Note
Progress Note Update
This serves as an addendum to H&P dictated by Ramin Conti on 03/29/2024.
I saw and examined the patient.
The APPLIANCE WORKER or PA's note was reviewed and I agree with the note.
Comment:
Patient 83 years old female history of hypertension, hyperlipidemia, B12 deficiency, TIA/CVA, GERD, osteoarthritis, presents to the hospital with sudden onset of left eye vision loss. She went to see an outside machinist helper today who sent her to the
hospital for further evaluation. Patient was in her usual state of health up until this morning she woke up with vision abnormality in his left eye. She initially had completely blackout of her left eye but later on her vision has turned grayish
but able to see a bit in the left lateral portion of the field in front of her. She denied headaches, dizziness, slurred speech, focal weakness, sensory deficits, dysphagia, diplopia, ataxia. She did have trouble walking but more so because of her
vision abnormalities. Denies any chest pain or shortness of breath. Denies any fevers or chills. Patient had 3 episodes of TIA in the past over the last several years and she has been kept on aspirin for secondary stroke prevention. Most of her
symptoms of TIA in the past have been related to focal weakness and paresthesias but denies any visual changes in the past.
Physical exam:
General: Acutely ill
HEENT: Normocephalic, Atraumatic and Moist Mucous Membranes
Respiratory: Clear to Auscultation; Negative Wheezes, Rales or Rhonchi
Cardiac: Regular Rhythm and S1/S2
GI: Soft, Nontender and Nondistended
Musculoskeletal: No Clubbing, No Cyanosis and No Edema
Neuro: Awake, Alert and Oriented x3. Strength is 5 out of 5 all 4 extremities and normal bulk and tone. No sensory deficits. No ataxia. Normal visual gaze. No apparent cranial nerve deficits. Visual field cut deficit present 3 out of 4
quadrants on the left eye are abnormal and spared the bottom lateral quadrant.
Psych: Calm
A/P:
Rule out TIA/CVA likely central retinal artery occlusion--> CT scan of the head and CTA of the head and neck pending results, echocardiogram, brain MRI, start dual antiplatelets, statins, neurology consult. Proceed with further neurological workup.
Will give further recommendations based on her clinical course.
[2024-03-29 16:37] LABS: HDL Cholesterol 77 mg/dl; LDL Cholesterol, Calculated 57 mg/dl; Total Cholesterol 147 mg/dl (50-199); Triglyceride 67 mg/dl (10-149); Very Low Density Lipoprotein 13 mg/dl (0-30)
[2024-03-29 17:10] LABS: TSH Reflex To Free T4 1.58 uIU/ml (0.47-4.68)
[2024-03-29 17:14] LABS: Ferritin 95.7 ng/ml (11.1-264.0)
--- NOTE | 2024-03-29 17:36 | PTCARENOTE ---
Received patient from ED via stretcher AAOx3, ambulated to bed with assistance. Assessed and oriented to room. quality assurance monitor chassis reading NSR. Call nagel in close reach.
[2024-03-29 17:45] LABS: Folate 18.6 ng/ml (2.76-20); Vitamin B12 480 pg/ml (239-931)
[2024-03-29] MEDS: NEURONTIN 300 MG PO (21:32)
[2024-03-29] MEDS: ASPIR LOW (ENTERIC COATED) 81 MG PO (21:33)
[2024-03-29] MEDS: CRESTOR 10 MG PO (22:05)
[2024-03-30 03:29] VITALS: BP 163/77
[2024-03-30 05:23] LABS: Hemoglobin 12.4 g/dL (12.0-16.0); Mean Corp Hgb Conc. 32.6 g/dL (33.0-37.0); Mean Corpuscular Hgb 30.4 pg (27.0-31.0); Mean Corpuscular Volume 93.1 fL (81.0-99.0); Mean Platelet Volume 9.7 fL (7.4-10.4); Platelet Count 204 10^3/uL (130-400); Red Blood Cell Count 4.08 10^6/uL (4.20-5.40); Red Cell Dist. Width 14.5 % (11.5-14.5); White Blood Cell Count 4.8 10^3/uL (4.8-10.8)
[2024-03-30 05:48] LABS: Blood Urea Nitrogen 21 mg/dl (7-17); Calcium 10.2 mg/dl (8.4-10.2); Carbon Dioxide 24 mmol/L (22-30); Chloride 110 mmol/L (98-107); Estimated Creatinine Clearance 46 ml/min; Glucose 92 mg/dl (70-99); HDL Cholesterol 71 mg/dl; LDL Cholesterol, Calculated 48 mg/dl; Potassium 4.6 mmol/L (3.5-5.1); Sodium 141 mmol/L (135-145); Total Cholesterol 133 mg/dl (50-199); Triglyceride 72 mg/dl (10-149); Very Low Density Lipoprotein 14 mg/dl (0-30); eGFR > 60.00
[2024-03-30 07:55] VITALS: BP 159/65
--- NOTE | 2024-03-30 08:16 | W.PN.HOSP.TC ---
Today's Communication/Plan
-
MRI of the brain. Dual antiplatelet therapy and statins.
Assessment / Plan
Assessment / Plan
Physical exam:
General: Acutely ill
HEENT: Normocephalic, Atraumatic and Moist Mucous Membranes
Respiratory: Clear to Auscultation; Negative Wheezes, Rales or Rhonchi
Cardiac: Regular Rhythm and S1/S2
GI: Soft, Nontender and Nondistended
Musculoskeletal: No Clubbing, No Cyanosis and No Edema
Neuro: Awake, Alert and Oriented x3. Strength is 5 out of 5 all 4 extremities and normal bulk and tone. No sensory deficits. No ataxia. Normal visual gaze. No apparent cranial nerve deficits. Visual field cut deficit present 3 out of 4
quadrants on the left eye are abnormal and spared the bottom lateral quadrant.
Psych: Calm
A/P:
# Left eye vision loss rule out acute CVA
-Head neck CTA no significant neck or intracranial abnormality
-Head CT no intracranial abnormality
-MRI of brain pending today.
-Permissive hypertension SBP less than 220, diastolic BP less than 120
-Obtain lipid profile
-Stroke protocol
-PT/OT consult
-Aspirin, statin, Plavix continued. Increased doses of statins for goal of LDL less than 70.
-Neurology consult
#essential HTN
-Bp stable
-losartan continued
-allow permissive HTN
# Hyperlipidemia
-Statin continued
# DVT prophylaxis
-SCD
# CODE STATUS
-Full code
Anticipated Discharge: 24 - 48 hours
Subjective/Interval History
-
Date of Service: March 30, 2024
Patient still with visual deficits. Denies slurred speech or focal weakness today.
Objective Data
-
Labs:
Laboratory Results
03/30/24
05:08
WBC 4.8
Hgb 12.4
Hct 38.0
Plt Count 204
Sodium 141
Potassium 4.6
Chloride 110 H
Carbon Dioxide 24
BUN 21 H
Creatinine 0.8
Glucose 92
Calcium 10.2
Vital Signs:
Vital Signs
Temp Pulse Resp BP Pulse Ox
98.7 F 72 16 163/77 94
03/30/24 03:29 03/30/24 03:29 03/30/24 03:29 03/30/24 03:29 03/30/24 03:29
I&O
03/29/24 03/30/24 03/31/24
06:59 06:59 06:59
Intake Total 480 / 480
Balance 480 / 480
[2024-03-30] MEDS: COZAAR 50 MG PO (09:10)
[2024-03-30] MEDS: PLAVIX 75 MG PO (09:10)
[2024-03-30] MEDS: FLUSH (NSS) 1 FLUSH IV (09:11)
[2024-03-30 10:09] LABS: Glycohemoglobin (HgbA1c) 6.2 % (4.0-5.6)
[2024-03-30 13:00] VITALS: BP 163/72
[2024-03-30 14:35] VITALS: BP 160/71; PULSE 70; O2SAT 97
[2024-03-30 14:42] VITALS: BP 160/71; PULSE 66; O2SAT 98
[2024-03-30 15:55] VITALS: BP 161/72
--- NOTE | 2024-03-30 16:02 | CM ---
I met with Isabella at bedside earlier today. She advised she lives with her in a 2 story home with 3 entry steps. Isabella has a RW and SPC at home. Her goal is to return home at discharge.
CM will follow to facilitate discharge when medically ready.
--- NOTE | 2024-03-30 16:24 | PTCARENOTE ---
Pt AAO x3, GEE well, OOB in room/to BR with assist of cane, denies weakness/dizziness. Pt still c/o blindness in lt eye; can see finger movement in Lt upper visual field. NIHSS 1. Pt upset over having to stay in hospital; Dr. Blount to speak with
pt. VSS. Telemetry:NSR. On room air- pulse ox 97%. Abd soft, rounded, jeet PO well. Voiding in BR without difficulty. Resting in bed at present. Will continue to monitor.
--- NOTE | 2024-03-30 16:29 | CM ---
Notified by Lorna Lopez that Isabella's MRI showed (+) stroke and has been changed to IP admission. Isaeblla was sleeping (as was her in the bedside chair) when I went to the room. Will provide in IMM in AM.
--- NOTE | 2024-03-30 17:25 | W.DCSUMMARY ---
Discharge Summary
Discharge Data
Date of Admission: 03/29/24
Date of Discharge: 03/30/24
-
Pending Results: No
Hospital Course
Patient 83 years old female with history of multiple TIAs/CVA, hypertension, hyperlipidemia sent by her ophthalmology due to sudden onset of left-sided vision loss. Patient was kept in the hospital and neurology consulted. MRI of the brain shows
2.3 mm acute ischemic infarct in the precentral gyrus of the posterior left frontal lobe. MRI incidentally showed severe central canal stenosis and spinal cord compression at C4-C5 and she is to follow-up as outpatient since asymptomatic at the
moment. CT of the head and neck shows some left carotid and proximal ICA stenosis about 60% but no requiring intervention at the moment. Patient otherwise has remained stable. Her deficit has remained about the same. She was able to participate
with PT and OT. Echocardiogram did not reveal any intracardiac thrombus. She has been placed on dual antiplatelet therapy and recommended to continue for 3 weeks and monotherapy afterwards and continue with increased doses of statins. Patient to
be discharged in stable condition today.
Discharge duration: 35 minutes
Discharge Plan
-
Patient Disposition: Home with Home Care
Discharge Diagnosis/Procedures: Acute stroke.
Diet: Low Cholesterol
Activity: As tolerated
Driving Restrictions: As prior to admission
Blood Work: please PCP to order CBC, BMP within 1 week.
Others Tests: Please PCP and Neurology to arrange for Cervical MRI for spinal cord compression evaluation.
Other Services: PT and OT
Referrals:
Everton Guerrero Jr., [Family Provider] - in less than 1 week
Frederick Recio MD [Active] - in two to three weeks
Prescriptions:
New
rosuvastatin 20 mg Tablet
20 mg PO HS 30 Days Qty: 30 0RF
clopidogrel [Plavix] 75 mg tablet
75 mg PO DAILY Qty: 21 0RF
Continued
ascorbic acid (vitamin C) [Vitamin C] 1,000 mg Tablet
1,000 mg PO QPM
cyanocobalamin (vitamin B-12) 1,000 mcg Tablet
1,000 mcg PO QPM
aspirin 81 mg Tablet,Delayed Release (Dr/Ec)
81 mg PO HS
gabapentin 300 mg Capsule
300 mg PO HS
Hair,Skin and Nails Tablet
1 tab PO DAILY
Systane (PF) 0.4-0.3 % Dropperette
1 drp BOTH EYES HS
Women's 50 Plus Multivitamin 400 mcg-500 mg calcium-20 mcg Tablet
1 tab PO QPM
cholecalciferol (vitamin D3)
1 tab PO Q48H@1700
cranberry extract
1 tab PO DAILY PRN (Reason: supplement)
losartan 50 mg Tablet
50 mg PO DAILY
Discontinued
naproxen sodium [Aleve] 220 mg Tablet
220 mg PO DAILYPRN PRN (Reason: mild pain)
naproxen 500 mg Tablet
500 mg PO DAILYPRN PRN (Reason: severe pain)
rosuvastatin 10 mg Tablet
10 mg PO HS
Discharge Orders:
Discharge Patient (As Directed); Ordered 03/30/24
Ordered By: Carlos A Blount
Discharge Date and Time
Discharge Date/Time: 03/30/24 18:57
Print Language: NEPALI
== END 2024-03-30 18:57 | disposition home health service (06) | DRG 65 ==
LOC: 4 EAST ACU 15:44
PROVIDERS: Emergency Medicine; Registered Nurse; ADMITTING PHYSICIAN Hospitalist; CONSULT PHYSICIAN Psychiatry & Neurology Neurology; EMERGENCY PHYSICIAN Emergency Medicine; FAMILY PHYSICIAN Family Medicine
DX: I63.9 Cerebral infarction, unspecified (principal); G95.20 Unspecified cord compression; I10 Essential (primary) hypertension; E78.5 Hyperlipidemia, unspecified
CPT/HCPCS: 70450; 70496; 70498; 70551; 80048; 80053; 80061; 82607; 82728; 82746; 83036; 84443; 85025; 85027; 85610; 85652; 86140; 92523; 93005; 93306; 97163; 97166; 99285; Q9967

== ENCOUNTER → 2024-04-19 07:58 | Outpatient (REF) | payer OTHER, SELFPAY | LOC: WDC 07:58 | PROVIDERS: ATTENDING PHYSICIAN Family Medicine | DX: Z12.31 Encounter for screening mammogram for malignant neoplasm of breast (principal); Z78.0 Asymptomatic menopausal state | CPT/HCPCS: 77063; 77067; 77080 ==

== ENCOUNTER 2024-04-21 06:03 | Inpatient (IN) | payer OTHER, SELFPAY ==
[2024-04-19 09:35] VITALS: BMI 27.2
[2024-04-19 10:02] LABS: % Basophils 0.7 % (0-2); % Eosinophils 3.3 % (0-6); % Immature Granulocytes 0.2 % (0-0.5); % Lymphocytes 19.4 % (20.5-51.1); % Monocytes 6.2 % (1.7-9.3); % Neutrophils 70.2 % (42.2-75.2); Absolute Eosinophils 0.2 10^3/uL (0-0.7); Absolute Lymphocytes 1.1 10^3/uL (1.2-3.4); Absolute Monocytes 0.4 10^3/uL (0.1-0.6); Absolute Neutrophils 4.1 10^3/uL (1.4-6.5); Hematocrit 36.6 % (37.0-47.0); Hemoglobin 12.2 g/dL (12.0-16.0); Mean Corp Hgb Conc. 33.3 g/dL (33.0-37.0); Mean Corpuscular Hgb 30.6 pg (27.0-31.0); Mean Corpuscular Volume 91.7 fL (81.0-99.0); Mean Platelet Volume 10.1 fL (7.4-10.4); Nucleated Red Blood Cells % 0 %; Platelet Count 226 10^3/uL (130-400); Red Blood Cell Count 3.99 10^6/uL (4.20-5.40); Red Cell Dist. Width 14.4 % (11.5-14.5); White Blood Cell Count 5.8 10^3/uL (4.8-10.8)
[2024-04-19 10:11] LABS: INR 1.01; PT 13.1 Sec (11.4-14.6)
[2024-04-19 10:12] LABS: APTT 30.4 Sec (23.4-35.0)
[2024-04-19 10:14] LABS: Blood Urea Nitrogen 22 mg/dl (7-17); Calcium 10.4 mg/dl (8.4-10.2); Carbon Dioxide 27 mmol/L (22-30); Chloride 107 mmol/L (98-107); Estimated Creatinine Clearance 40 ml/min; Glucose 93 mg/dl (70-99); Potassium 4.3 mmol/L (3.5-5.1); Sodium 142 mmol/L (135-145); eGFR > 60.00
[2024-04-21] VITALS (23 sets, daily range): BP systolic 105–162; BP diastolic 37–98; BMI 27.5; BMI 28.4
[2024-04-21] MEDS: BACTROBAN NASAL 1 GRAM NASAL (06:28)
[2024-04-21] MEDS: NSS 500 IV (06:29)
--- NOTE | 2024-04-21 06:59 | W.SUR.PREOP ---
Pre-Operative Surgical Note
-
I have examined this patient prior to the performance of the scheduled procedure.
The patient's condition is unchanged from the time of the current History and
Physical and the patient is able to undergo the scheduled procedure.
--- NOTE | 2024-04-21 09:51 | W.SUR.POST ---
Surgical Immediate Post Op
Note
Pre Op Diagnosis: Symptomatic carotid stenosis
Post Op Diagnosis: symptomatic carotid stenosis
Procedure Performed: Left carotid endarterectomy with bovine pericardium patch angioplasty and EEG monitoring
Primary Surgeon: Esvin Mckeon MD
Rate Setter: CHAN HectorC
Anesthesia: GETA
Estimated Blood Loss: 20 ml
Fluids:See anesthesia flow sheet
Drains/Shunts: N/A
Specimens/Cultures: Left carotid plaque
Doppler/Duplex/Angio (Y/N): Y (doppler)
Complications: None
Operative Findings: Upon awakening from anesthesia patient was able to move BL UE and LE to command and spontaneously, tongue midline
--- NOTE | 2024-04-21 09:53 | W.PV.INTER ---
VPI Note
Pre Admission Note
Functional Status: Light Work
Ambulation: Ambulate Independently
Pre Op Medications
Pre Op ASA: Yes
Pre Op Statin: Yes
Pre Op DWAIN Inhibitor/ARB: Yes
Pre Op P2y12 Antagonist: Clopidogrel
Pre Op Beta Blockers: No
Pre Op Chronic Anticoagulant: None
Pre Op Cilostazol: No
Post Op Medications
Post Op ASA: Yes
Post Op Statin: Yes
Post Op DWAIN Inhibitor/ARB: Yes
Post Op P2y12 Antagonist: No, for Medical Reason (stopped b/c she completed stroke protocol )
Post Op Beta Blockers: No
Post Op Chronic Anticoagulant: None
Post Op Cilostazol: No
Modified [place]
Pre Op: 0
Post Op: 0
[2024-04-21] MEDS: CARDENE 200 IV ×2 (10:15→11:43)
[2024-04-21 10:19] LABS: Hematocrit 32.8 % (37.0-47.0); Hemoglobin 11.3 g/dL (12.0-16.0); Mean Corp Hgb Conc. 34.5 g/dL (33.0-37.0); Mean Corpuscular Hgb 31.3 pg (27.0-31.0); Mean Corpuscular Volume 90.9 fL (81.0-99.0); Red Blood Cell Count 3.61 10^6/uL (4.20-5.40); Red Cell Dist. Width 14.4 % (11.5-14.5); White Blood Cell Count 5.2 10^3/uL (4.8-10.8)
[2024-04-21 10:35] LABS: Blood Urea Nitrogen 23 mg/dl (7-17); Calcium 9.1 mg/dl (8.4-10.2); Carbon Dioxide 21 mmol/L (22-30); Chloride 112 mmol/L (98-107); Estimated Creatinine Clearance 49 ml/min; Glucose 100 mg/dl (70-99); Potassium 4.2 mmol/L (3.5-5.1); Sodium 141 mmol/L (135-145); eGFR > 60.00
[2024-04-21] MEDS: DILAUDID 0.25 MG IV (10:49)
--- NOTE | 2024-04-21 11:42 | OR.RPT ---
Operative Report
Operative Report
PROCEDURE DATE: 04/21/2024
Preoperative diagnosis: Symptomatic left carotid artery critical stenosis.
Postoperative diagnosis: Same
Procedure: Left carotid endarterectomy with bovine pericardial patch angioplasty and intraoperative EEG/SSEP monitoring.
Surgeon: Mike
Paint Specialist: Karly Masters [employer]LE BRM DEVELOPER, required for all aspects of procedure including assistance with traction/countertraction, following of suture line, assistance with closure.
Complications: None
Anesthesia: General
Indications for procedure:
Patient who presented expeditiously to the office with symptoms of left eye visual loss, retinal artery occlusion. MRI had demonstrated small left hemispheric infarct. CT angiogram imaging demonstrated significant left carotid stenosis with
concerning soft plaque. Risk/benefits/alternatives of revascularization for prevention of recurrent stroke were discussed. Patient understood all wish to proceed.
Description of procedure:
Patient was identified brought to the operating room placed on the table in supine position. After the adequate administration of anesthesia and perioperative antibiotics she was prepped and draped in the standard surgical fashion. A standard
preoperative timeout was undertaken and everybody was in agreement the plan. A standard longitudinal incision was made in the left neck that was carried through the skin subcutaneous tissue. Using the electrocautery dissection was carried through
the platysma muscle layer and then alongside the anterior medial border of the sternocleidomastoid muscle. Note the common facial vein branch emanated somewhat high in the exposed field, but ran somewhat parallel up and down to the jugular.
Slightly atypical. But I was able to clarify the anatomy. Then using a combination of sharp dissection with the Metzenbaum scissors and electrocautery I dissected along the anterior medial border of the internal jugular vein. The common facial
vein branch was ligated between silk ties and then divided. I then deepened my retraction. The common carotid artery was identified and carefully dissected away from the surrounding structures take great care to avoid any injury to the structures.
A vessel loop was passed around it which was double looped, but not yet tightened. Note the vagus nerve was protected from harm's way. I then continued my dissection up the common carotid artery to the bulb staying only on the anterior surface of
the carotid artery. Then I carried the dissection up to the internal carotid artery and then to the distal internal carotid artery. I identified where it was soft and carefully circumferentially dissected the internal carotid artery with minimal
mobilization and passed a vessel loop around it. Note the hypoglossal nerve was preserved from harm's way. The patient was given an appropriate dose of heparin 6500 units. Next I dissected the anterior surface of the external carotid artery and
superior thyroid branches. These were then carefully circumferentially dissected with minimal mobilization and vessel loops passed around these which were double looped but not yet tightened. After 3 minutes of heparin circulation time and
confirmation of optimization of the blood pressure with my anesthesiology colleagues, I clamped the distal internal carotid artery where it was soft. There was no immediate EEG or SSEP changes. After 1 minute of test clamp time there was no
changes noted. Therefore at this point, the vessel loops on the external carotid artery and superior thyroid branches were tightened and the common carotid artery was clamped where it was soft proximally. An arteriotomy was made on the common
carotid artery with an 11 blade and extended using a Long scissor. I extended the arteriotomy onto the mid to distal internal carotid artery. There was a signficant mixed consistency plaque with significant hemorrhagic central component. Not
only did cause a significant degree of stenosis, but the central hemorrhagic portion was very friable. It became clear that this was certainly the cause of her recent symptoms and infarct findings on MRI. A Enterprise was then used to endarterectomized
the plaque. An endarterectomy plane was created, and the plaque was then endarterectomized. Distally I feathered the plaque out to a nice clean endpoint in the distal internal carotid artery. Next I endarterectomized the intima back to normal
intima in the common carotid artery, and the intima was cut flush there. I then grasped the plaque and everted plaque out of the origin of the external carotid artery. The plaque was then sent off for specimen. The origin of the external carotid
artery was carefully visualized and any fine debris were removed with fine forceps. Proximal and distal endpoints were then carefully inspected. Any fine debris was removed with fine forceps, and the intima was noted to be nicely adherent
proximally distally. Next any fine debris were removed throughout the endarterectomy bed with fine forceps. I then flushed heparinized saline. I was very satisfied. Then, I used a bovine pericardial patch to sew a patch angioplasty with a
running 6-0 Prolene suture. Prior to completing and tying down my suture line, I backbled sequentially each branch and reclamped each branch prior to unclamping the next branch. I then irrigated with heparinized saline. Then I completed and tied
down my suture line. We then restored flow in the common carotid and external carotid arteries. There was a small suture line bleeder that I was able to primarily repair with a single 6-0 pbheil-ld-sjkea prolene suture. Finally, we released flow
in the internal carotid artery. There was excellent pulsatile flow in all 3 vessels. There was an excellent Doppler signal in the internal carotid artery distal to the patch with a good normal low resistance Doppler signal. There was a good
Doppler signal in the external carotid artery as well. Two additional 6-0 Prolene rutarb-wq-obozc sutures were placed along a couple bleeding points along the suture line. Protamine was given to reverse the heparin. Hemostasis was completely
achieved. We then irrigated and confirmed full hemostasis. We then closed in layers with 2-0 Vicryl layer to reapproximate the sternocleidomastoid muscle, followed by 3-0 Vicryl platysma muscle running layer, followed by 4-0 Monocryl subcuticular
stitch. Dermabond was applied. The patient tolerated procedure well. She awoke moving all extremities to command with tongue in the midline.
[2024-04-21] MEDS: NSS 1000 IV ×2 (11:43→20:37)
[2024-04-21] MEDS: TYLENOL 650 MG PO ×3 (12:07→22:05)
--- NOTE | 2024-04-21 12:54 | CON.INTV ---
Consultation
Consultation Request
Date/Time Consultation Requested: 04/21/2024
Date/Time Consultation Performed: 04/21/2024
Requesting Provider: Dr. Mckeon
Performing Provider: Dr. William Feliciano
Reason for Consultation: Carotid endarterectomy, postoperative ICU care
Medical History
Past Medical History
Past Medical History: Other (See assessment and plan section)
Social History
Tobacco: Former Smoker (Smoker until age 39)
Alcohol: None
Drug: None
Family History
Family History: Reviewed & Not Pertinent
Allergies / Home Medications
Allergies
Allergy/AdvReac Type Severity Reaction Status Date / Time
atorvastatin calcium Allergy blurred Verified 04/21/24 06:20
[From Lipitor] vision
celecoxib [From Celebrex] Allergy Shortness Verified 04/21/24 06:20
of Breath
/ numbness
oxybutynin Allergy dry Verified 04/21/24 06:20
mouth/throat
sulfamethoxazole Allergy 'dizzy, Verified 04/21/24 06:20
[From Bactrim] nausea,
whole body
hurt'
tamsulosin Allergy dry Verified 04/21/24 06:20
mouth/throat
Home Medications
�Medication �Instructions �Recorded �Confirmed �Last Taken �Type
ascorbic acid (vitamin C) 1,000 mg 1,000 mg PO QPM Supplement 03/29/24 04/21/24 04/19/24 08:00 History
tablet (Vitamin C)
aspirin 81 mg tablet,delayed 81 mg PO HS Blood Clot 03/29/24 04/21/24 04/13/24 00:00 History
release Prevention/Tx
cranberry extract 1 tab PO DAILY PRN supplement 03/29/24 04/21/24 Unknown History
cyanocobalamin (vitamin B-12) 1,000 mcg PO QPM Supplement 03/29/24 04/21/24 04/19/24 08:00 History
1,000 mcg tablet
gabapentin 300 mg capsule 300 mg PO HS pain 03/29/24 04/21/24 04/20/24 23:00 History
losartan 50 mg tablet 50 mg PO DAILY Blood Pressure 03/29/24 04/21/24 04/21/24 05:00 History
nmkumqty-ime-uemqk ac 400 1 tab PO QPM Supplement 03/29/24 04/21/24 04/10/24 08:00 History
mcg-calcium carb 500 mg-vit K1 20
mcg tablet (Women's 50 Plus
Multivitamin)
multivitamin with minerals 1 tab PO DAILY Supplement 03/29/24 04/21/24 04/20/24 08:00 History
(Hair,Skin and Nails tablet)
clopidogrel 75 mg tablet (Plavix) 75 mg PO DAILY #21 tabs 03/30/24 04/21/24 04/21/24 05:00 Rx
rosuvastatin 20 mg tablet 20 mg PO HS 30 days #30 tabs 03/30/24 04/21/24 04/20/24 23:00 Rx
Prevagen 1 cap PO DAILY Supplement 04/16/24 04/21/24 04/20/24 08:00 History
alprazolam 0.25 mg tablet (Xanax) 0.25 mg PO PRN PRN anxiety 04/16/24 04/21/24 04/17/24 20:00 History
calcium polycarbophil 625 mg tablet 1,250 mg PO PRN PRN constipation 04/16/24 04/21/24 04/10/24 08:00 History
cholecalciferol (vitamin D3) 25 25 mcg PO DAILY Supplement 04/16/24 04/21/24 04/20/24 14:00 History
mcg (1,000 unit) tablet (Vitamin
D3)
docusate sodium 100 mg capsule 100 mg PO PRN PRN constipation 04/16/24 04/21/24 04/20/24 14:00 History
(Colace)
naproxen 500 mg tablet 500 mg PO PRN PRN back pain 04/16/24 04/21/24 Unknown History
naproxen sodium 220 mg capsule 220 mg PO PRN PRN back pain 04/16/24 04/21/24 Unknown History
(Aleve)
nystatin-triamcinolone topical 1 applic topical PRN PRN under 04/16/24 04/21/24 Unknown History
cream breasts
pantoprazole 40 mg tablet,delayed 40 mg PO PRN PRN with naproxen 04/16/24 04/21/24 04/20/24 20:00 History
release sodium
Review of Systems
-
History Source: Patient
All other systems: Negative unless noted
Vitals / Labs / Diagnostic Testing
Vital Signs
Temp Pulse Resp BP Pulse Ox
97.9 F 82 15 129/51 98
04/21/24 11:34 04/21/24 12:15 04/21/24 12:15 04/21/24 12:03 04/21/24 12:15
Lab Data
04/21/24 10:07
04/21/24 10:08
Microbiology
04/19/24 09:47 Nose MRSA Screen - Final
No Methicillin Resistant Staphylococcus aureus isolated.
Diagnostic Testing:
Physical Exam
-
HEENT: Normocephalic
Cardiovascular: S1/S2
Respiratory: Clear and Non-Labored Respirations
GI: Soft and Non Distended
Neurology: Awake and Oriented
Skin: Warm
General: Comfortable
Assessment
-
Status post left carotid endarterectomy 04/21/2024-Dr. Mckeon
Conditions present prior admission:
Prior history of CVA/TIA r
Recent admission with left thigh vision loss-MRI at that time shows a 2.3 mm acute ischemic infarct.
Left carotic proximal internal carotid artery stenosis
Spinal stenosis
Hypertension
Hyperlipidemia
Restless leg syndrome
Seasonal allergies
Anxiety
Osteopenia
Former smoker-smoked from 16 to 39 years old 1 pack/week.
Assessment and plan:
Postoperative surgical intensive care unit monitoring
Supplemental oxygen as needed
Incentive spirometry
Aspiration precautions
Analgesia with narcotics, watch respiratory status closely.
Neuro and vascular checks per protocol
Vascular surgery following-correspondence and operative notes reviewed
Monitor blood pressure
Arterial line in place
Allow for mild permissive hypertension
Cardene drip if needed
Follow hemoglobin
Follow blood sugars
Insulin supplementation as needed
Monitor hypercalcemia advance diet as tolerated
Gentle hydration IV fluid
DVT prophylaxis
Early nutrition
Early mobilization
--- NOTE | 2024-04-21 13:09 | PTCARENOTE ---
Received pt from PACU s/p L CEA. A&O X4 with slight right-sided mouth droop noted. NIMA Masters with vascular team aware. 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 Supplimental O2 removed with SpO2 97%. Cardene off with SBP
160s/a-line and 120s/NIBP. Sarah zeroed and leveled and non-correlation continues with good waveform. Neurological checks performed as ordered. Tolerating sips/chips, advanced diet. Voided in bedpan. C/o 6/10 pain in L neck and 3/10 teeth but
refusing opioids at this time. Tylenol given. at bedside and plan of care discussed.
[2024-04-21] MEDS: VITAMIN B-12 1000 MCG PO (17:51)
[2024-04-21] MEDS: VITAMIN C 1000 MG PO (17:51)
--- NOTE | 2024-04-21 20:00 | PTCARENOTE ---
rn assessment, aaox3, Neuro checks as documented on work list. SR HR 60s, B/L IVs WNL, NSS infusing per order. L rad AL WNL. L neck incision CDI with skin glue- ice pack applied. RA Sat 92%. POC discussed, call shona w/pt.
[2024-04-21] MEDS: HEPARIN 5000 UNITS SC (20:38)
[2024-04-21] MEDS: ASPIR LOW (ENTERIC COATED) 81 MG PO (22:59)
[2024-04-21] MEDS: NEURONTIN 300 MG PO (22:59)
[2024-04-21] MEDS: CRESTOR 20 MG PO (23:00)
--- NOTE | 2024-04-22 | PTCARENOTE ---
no changes in pt assessment.
[2024-04-22] MEDS: TYLENOL 650 MG PO ×3 (03:14→12:12)
[2024-04-22 05:38] LABS: Hematocrit 32.3 % (37.0-47.0); Hemoglobin 10.5 g/dL (12.0-16.0); Mean Corp Hgb Conc. 32.5 g/dL (33.0-37.0); Mean Corpuscular Hgb 30.3 pg (27.0-31.0); Mean Corpuscular Volume 93.4 fL (81.0-99.0); Mean Platelet Volume 10.3 fL (7.4-10.4); Platelet Count 184 10^3/uL (130-400); Red Blood Cell Count 3.46 10^6/uL (4.20-5.40); Red Cell Dist. Width 14.3 % (11.5-14.5); White Blood Cell Count 7.8 10^3/uL (4.8-10.8)
[2024-04-22 05:52] LABS: INR 1.05; PT 13.7 Sec (11.4-14.6)
[2024-04-22 05:53] LABS: APTT 30.6 Sec (23.4-35.0)
[2024-04-22 05:58] VITALS: BMI 28.6
[2024-04-22 06:21] LABS: Blood Urea Nitrogen 15 mg/dl (7-17); Calcium 9.3 mg/dl (8.4-10.2); Carbon Dioxide 21 mmol/L (22-30); Chloride 115 mmol/L (98-107); Estimated Creatinine Clearance 50 ml/min; Glucose 99 mg/dl (70-99); Potassium 4.3 mmol/L (3.5-5.1); Sodium 140 mmol/L (135-145); eGFR > 60.00
--- NOTE | 2024-04-22 07:19 | W.PN.VS ---
Today's Communication / Plan
-
See plan below for today 04/22/2024.
Assessment/Plan
-
Postoperative day #1 status post left carotid endarterectomy (symptomatic carotid stenosis).
� Discontinue arterial line.
� Hep-Lock IV fluids.
� Out of bed, ambulate.
� Likely discharge today.
-
Total Time Spent with Patient (in minutes): 15
Subjective Data
-
Date of Service: April 22, 2024
Seen and examined. Patient without any complaints this morning.
Objective Data
-
Vital Signs
Temp Pulse Resp BP Pulse Ox
97.6 F 54 14 159/61 94
04/21/24 20:00 04/22/24 06:15 04/22/24 06:15 04/21/24 22:00 04/22/24 06:15
Intake and Output
04/21/24 04/22/24 04/23/24
06:59 06:59 06:59
Intake Total 2700 / 2700
Balance 2700 / 2700
Intake:
Oral fluids 960 / 960
IV fluids (Total) 1740 / 1740
Normosol 300 / 300
Nss 1,000 ml @ 80 mls/hr IV . 1440 / 1440
[id number] LUZ MARINA Rx#:[id number]
Other:
Number of approximated LARGE 1
amounts of urine
Lab Results
04/22/24 05:08
04/22/24 05:08
Calcium 9.3 mg/dl (8.4-10.2) 04/22/24 05:08
Physical Exam
-
Afebrile.
Awake and alert.
Left neck incision is clean dry and intact. No hematoma.
Neurologically no focal deficits. Moves all extremities well, tongue midline.
Labs reviewed.
--- NOTE | 2024-04-22 08:30 | PTCARENOTE ---
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 Pox: 98% RA. L neck incision ALCIRA (ecchymotic). L radial arterial line transduce, calibrate and monitor, all ports patent and secured. Correlates to bp cuff. Patient denies pain/SOB. IVFs discontinued. Review s/s of stroke,
discharge planning, and wound care. Plan of care ongoing.
[2024-04-22] MEDS: COZAAR 50 MG PO (08:56)
[2024-04-22] MEDS: VITAMIN D3 (cholecalciferol) 25 MCG PO (08:56)
[2024-04-22 08:57] VITALS: BP 110/58
[2024-04-22 09:03] VITALS: BP 125/47
[2024-04-22 09:05] VITALS: BP 128/48
--- NOTE | 2024-04-22 09:30 | PTCARENOTE ---
Left radial arterial line discontinued as ordered. Hemostasis was obtained and gauze dressing secured with tegaderm applied. Pt instructed to remove the dressing tomorrow. She also was informed to call the nurse if her dressing becomes bloody,
and/or if she develops numbness or tingling of her left hand and to limit the use of her left hand and not push off the surface of the bed to prevent bleeding/hematoma. She verbalized her understanding.
--- NOTE | 2024-04-22 09:52 | CM ---
CM following re: discharge planning.
Reviewed pt's chart, met with pt.
Pt is an 84 year old female, admitted with primary dx of POD #1 status post left carotid endarterectomy. Per vascular surgery pt most likely will be discharged this afternoon. Pt is aware, expressed her agreement and she stated her will
transport home at discharge.
Pt reports she lives with in a 2SH, 3 steps to enter, has supportive daughter. Pt described herself as independent in all areas [employer]ING [employer], uses a cane, has a walker. No VN or SNF history.
PCP: Everton Guerrero
Pharmacy: [facility].
D/C plan: home no needs. to transport.
--- NOTE | 2024-04-22 10:23 | W.PN.INTV ---
Today's Communication / Plan
Recommendations
Continue postoperative care
Sign off
Discharge planning
Assessment
-
Status post left carotid endarterectomy 04/21/2024-Dr. Mckeon
Conditions present prior admission:
Prior history of CVA/TIA r
Recent admission with left thigh vision loss-MRI at that time shows a 2.3 mm acute ischemic infarct.
Left carotic proximal internal carotid artery stenosis
Spinal stenosis
Hypertension
Hyperlipidemia
Restless leg syndrome
Seasonal allergies
Anxiety
Osteopenia
Former smoker-smoked from 16 to 39 years old 1 pack/week.
Assessment and plan:
Postoperative day 1
No overnight events
Stable hemodynamically
Intact neurologically
Incision without hematoma
No stridor on exam
Neuro and vascular checks per protocol
Vascular surgery following-correspondence and operative notes reviewed discharge planning
Hemodynamically stable
Continue outpatient regimen
DVT prophylaxis
Increase activity per protocol
Discharge planning
No additional recommendation from the critical care perspective, signed off
Subjective Dataa
Subjective Data
Date of Service:
Date of Service: April 22, 2024
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
Subjective:
No overnight events
Relatively asymptomatic
Denies any headache, blurry vision.
Denies any dizziness
Pain is controlled.
Review of Systems
General: Fever (n)
Cardiopulmonary: Dyspnea (n)
GI: Abdominal Pain (n)
Objective Data
Data Reviewed
Vital Signs / I&O / Oxygen:
Vital Signs
Temp Pulse Resp BP Pulse Ox
98.2 F 72 14 110/58 94
04/22/24 07:33 04/22/24 08:56 04/22/24 06:15 04/22/24 08:56 04/22/24 06:15
Intake and Output
04/21/24 04/22/24 04/23/24
06:59 06:59 06:59
Intake Total 2700 / 2700
Balance 2700 / 2700
SaO2 94
Nasal Cannula flow liters per 2
minute
Physical Exam
General: Respiratory Distress (n) and Comfortable
HEENT: Normocephalic and Other (Cervical incision intact)
Cardiovascular: S1-S2
Respiratory: Clear and Non-Labored Respirations
GI: Non Distended
Neurology: Awake, Alert and AO x 3
Skin: Warm
Labs/Micro/Reports
Lab Data
04/22/24 05:08
04/22/24 05:08
Laboratory Results
04/22/24
05:08
PT 13.7
INR 1.05
APTT 30.6
Microbiology
04/19/24 09:47 Nose MRSA Screen - Final
No Methicillin Resistant Staphylococcus aureus isolated.
[2024-04-22] MEDS: HEPARIN 5000 UNITS SC (11:07)
[2024-04-22 11:31] VITALS: BP 125/44
--- NOTE | 2024-04-22 12:57 | PTCARENOTE ---
No changes in patient assessment. NSR on hospital monitor. Patient ambulated w/ rolling walker in hallway X2. Arterial line removed. Pox: 95% RA. Pt voided 550 ml. Patient c/o L neck pain 12/20. Medicated with Tylenol. See MAR. Pt eating lunch.
at bedside.
--- NOTE | 2024-04-22 13:07 | W.DS.TRANS ---
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
-
Discharge Instructions:
Discharge Diagnosis/Procedures Left carotid endarterectomy
Diet As tolerated,Low Cholesterol
Activity No strenuous activity
Driving Restrictions Not until seen by your Dr
Bathing Restrictions OK to Shower
Instructions:
Stand-Alone Forms: DC Instr - Vascular OR
Changes to Home Medications: Yes
Discharge Medications:
DC Medications w/original date entered in [facility]
ascorbic acid (vitamin C) 1,000 mg tablet (Vitamin C) 1,000 mg PO QPM Supplement 03/29/24
aspirin 81 mg tablet,delayed release 81 mg PO HS Blood Clot Prevention/Tx 03/29/24
cranberry extract 1 tab PO DAILY PRN supplement 03/29/24
cyanocobalamin (vitamin B-12) 1,000 mcg tablet 1,000 mcg PO QPM Supplement 03/29/24
gabapentin 300 mg capsule 300 mg PO HS pain 03/29/24
losartan 50 mg tablet 50 mg PO DAILY Blood Pressure 03/29/24
zsfmidpt-zxl-qcwvr ac 400 mcg-calcium carb 500 mg-vit K1 20 mcg tablet (Women's 50 Plus Multivitamin) 1 tab PO QPM Supplement 03/29/24
multivitamin with minerals (Hair,Skin and Nails tablet) 1 tab PO DAILY Supplement 03/29/24
rosuvastatin 20 mg tablet 20 mg PO HS 30 days #30 tabs 03/30/24
Prevagen 1 cap PO DAILY Supplement 04/16/24
alprazolam 0.25 mg tablet (Xanax) 0.25 mg PO PRN PRN anxiety 04/16/24
calcium polycarbophil 625 mg tablet 1,250 mg PO PRN PRN constipation 04/16/24
cholecalciferol (vitamin D3) 25 mcg (1,000 unit) tablet (Vitamin D3) 25 mcg PO DAILY Supplement 04/16/24
docusate sodium 100 mg capsule (Colace) 100 mg PO PRN PRN constipation 04/16/24
naproxen 500 mg tablet 500 mg PO PRN PRN back pain 04/16/24
naproxen sodium 220 mg capsule (Aleve) 220 mg PO PRN PRN back pain 04/16/24
nystatin-triamcinolone topical cream 1 applic topical PRN PRN under breasts 04/16/24
pantoprazole 40 mg tablet,delayed release 40 mg PO PRN PRN with naproxen sodium 04/16/24
Home Medication Changes
stopped plavix 75mg PO daily
Held for three days:
naproxen 500 mg tablet 500 mg PO PRN PRN back pain 04/16/24
naproxen sodium 220 mg capsule (Aleve) 220 mg PO PRN PRN back pain 04/16/24
Pending Results: No
[2024-04-22 13:08] VITALS: BP 118/45
== END 2024-04-22 13:52 | disposition home or self-care (01) | DRG 38 ==
LOC: ICU 06:03
PROVIDERS: Nurse Practitioner; ADMITTING PHYSICIAN Surgery Vascular Surgery; CONSULT PHYSICIAN Internal Medicine Critical Care Medicine; FAMILY PHYSICIAN Family Medicine
PROC: 03CL0ZZ Extirpation of Matter from Left Internal Carotid Artery, Open Approach (ICD-10-PCS; 2024-04-21)
PROC: 03UL0KZ Supplement Left Internal Carotid Artery with Nonautologous Tissue Substitute, Open Approach (ICD-10-PCS; 2024-04-21)
DX: I65.22 Occlusion and stenosis of left carotid artery (principal); H34.232 Retinal artery branch occlusion, left eye; I10 Essential (primary) hypertension; E78.5 Hyperlipidemia, unspecified; G25.81 Restless legs syndrome; M85.80 Other specified disorders of bone density and structure, unspecified site; F41.9 Anxiety disorder, unspecified; Z86.73 Personal history of transient ischemic attack (TIA), and cerebral infarction without residual deficits; Z87.891 Personal history of nicotine dependence
CPT/HCPCS: 88304; 88311; 35301; 36415; 80048; 85025; 85027; 85610; 85730; 86850; 86900; 86901; 87070

== ENCOUNTER → 2024-05-01 10:16 | Outpatient (REF) | payer OTHER, SELFPAY | LOC: MRI 3T 10:16 | PROVIDERS: ATTENDING PHYSICIAN Family Medicine | DX: I63.412 Cerebral infarction due to embolism of left middle cerebral artery (principal) | CPT/HCPCS: 72141 ==

== ENCOUNTER 2024-05-08 12:16 | Emergency (ER) | payer OTHER, SELFPAY ==
[2024-05-08 12:22] VITALS: BP 147/72
[2024-05-08] MEDS: DELTASONE 20 MG PO (13:09)
[2024-05-08 14:03] VITALS: BP 139/74
--- NOTE | 2024-05-08 15:02 | ED.GENMED ---
History of Present Illness
General
Chief Complaint: Skin Problem
Source: patient and records
Exam Limitations: none
Time Seen by Provider: 05/08/24 12:41
Nursing documentation reviewed up to this point in time: agreed with
History of Present Illness
History of Present Illness:
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 Patient had 2 shots in her lower abdomen and then developed a rash. Patient's Plavix was stopped at
that time. Patient was thought to have a fungal infection of her abdomen and was placed on nystatin cream. Patient had been using nystatin triamcinolone. Yesterday patient noticed redness of her face with burning and itching. Patient denies any
difficulty breathing. Patient denies a previous history of similar episodes.
Past History
Past History
ED Past Medical History: CVA, GERD, Hypercholesterolemia and Other (arthritis, restless leg syndrome, vertigo, seasonal allergies, anxiety, arthritis, cervical spinal stenosis)
ED Past Surgical History: , Orthopedic and Other
Social History
Tobacco: Non-smoker
Personal: Single
Living: alone
Review of Systems
Review of Systems
All Other Systems: Not applicable
Constitutional: Denies fever or chills
EENT: Denies sore throat or mouth swelling
Respiratory: Denies trouble breathing
Skin: Reports itching and rash
Phy Exam
Physical Exam
Physical Exam:
Physical Exam
General: No apparent distress, alert and appropriate, well nourished, well hydrated
HENT: Normocephalic, supple with no lymphadenopathy, no thyromegaly. Patient in the infraorbital/maxillary regions bilaterally as well as in the area between the eyebrows that is erythematous swollen macular rash with a
spot on the right chin. Oropharynx is clear.
Eyes: Clear sclera, conjuctiva without injection
Neuro: Alert and oriented x 3, CN II - XII intact, no motor focality, no cerebellar dysfunction
Skin: Also to well-circumscribed oval areas in the right and left lower abdomen in the area of resolving ecchymosis from injections received in the hospital that are erythematous in nature
Psychiatric: well kept. interactive and cooperative
Extremities: No cyanosis
Scores
Heart Failure Risk
Heart Failure Risk Score: Not Applicable
Heart Score for Chest Pain Patients
STEMI patient?: Not applicable
Withdrawal Assessment of Alcohol
Withdrawal Assessment Completed?: Not applicable
Course
Orders/Labs/Results
Orders:
Orders
05/08/24 13:03
Prednisone [Deltasone] 20 mg PO NOW STA
Vital Signs
Initial and Last Documented VS:
Initial Vital Signs
Temp Pulse Resp BP Pulse Ox
98 F 72 16 147/72 98
05/08/24 12:22 05/08/24 12:22 05/08/24 12:22 05/08/24 12:22 05/08/24 12:22
Last Documented Vital Signs
Temp Pulse Resp BP Pulse Ox
98 F 71 16 139/74 98
05/08/24 12:22 05/08/24 14:03 05/08/24 14:03 05/08/24 14:03 05/08/24 14:03
*Radiology
Radiology exam reviewed: other (na)
*Pulse Oximetry
Patient hypoxic: no
*EKG
Interpreted by ED Provider?: NA
*Lead Pharmacy Technician Interpretation
Rate: Lead Pharmacy Technician- N/A
*Critical Care Note
Total Time (30-74mins, 75-104mins- exclusive of procedures): Not Applicable
ED Attending Note
-
Portions of this chart may have been created with voice recognition software.� Occasional wrong word or��sound alike� substitutions may have occurred due to the inherent limitations of voice recognition software.
Discharge Plan
Departure
Patient Disposition: Home (Routine Discharge)
Date of Disposition: 05/08/24
Time of Disposition: 15:12
Patient with high blood pressure during this ER visit?: No
Condition: Good
Covid-19: Not Applicable
Discharge Problem:
Contact dermatitis
Instructions: Contact dermatitis
Prescriptions:
New
betamethasone dipropionate 0.05 % cream
1 applic topical BID Qty: 45 0RF
No Action
ascorbic acid (vitamin C) [Vitamin C] 1,000 mg Tablet
1,000 mg PO QPM
cyanocobalamin (vitamin B-12) 1,000 mcg Tablet
1,000 mcg PO QPM
aspirin 81 mg Tablet,Delayed Release (Dr/Ec)
81 mg PO HS
gabapentin 300 mg Capsule
300 mg PO HS
Hair,Skin and Nails Tablet
1 tab PO DAILY
Women's 50 Plus Multivitamin 400 mcg-500 mg calcium-20 mcg Tablet
1 tab PO QPM
cranberry extract
1 tab PO DAILY PRN (Reason: supplement)
losartan 50 mg Tablet
50 mg PO DAILY
rosuvastatin 20 mg Tablet
20 mg PO HS 30 Days Qty: 30 0RF
alprazolam [Xanax] 0.25 mg Tablet
0.25 mg PO PRN PRN (Reason: anxiety)
pantoprazole 40 mg Tablet,Delayed Release (Dr/Ec)
40 mg PO PRN PRN (Reason: with naproxen sodium)
calcium polycarbophil 625 mg Tablet
1,250 mg PO PRN PRN (Reason: constipation)
docusate sodium [Colace] 100 mg Capsule
100 mg PO PRN PRN (Reason: constipation)
naproxen 500 mg Tablet
500 mg PO PRN PRN (Reason: back pain)
Hold Instructions: Resume on 04/24/24.
nystatin-triamcinolone Cream
1 applic TOPICAL PRN PRN (Reason: under breasts)
cholecalciferol (vitamin D3) [Vitamin D3] 25 mcg (1,000 unit) Tablet
25 mcg PO DAILY
naproxen sodium [Aleve] 220 mg Capsule
220 mg PO PRN PRN (Reason: back pain)
Hold Instructions: Resume on 04/24/24.
Prevagen
1 cap PO DAILY
Referrals:
Everton Guerrero Jr., DO [Family Provider] - Follow up in 5-7 days
Serena Quevedo DO [Active] - Call in 1-3 days for appt
Activity Restrictions/Additional Instructions:
Continue present medications and therapy.
Interventions
Interventions:
*Risk Screen - Suicide Last Done: 05/08/24 12:47
*General Assessment Last Done: 05/08/24 12:45
*Neglect/Abuse Screening Last Done: 05/08/24 12:47
ED- Fall Risk Assessment Last Done: 05/08/24 12:47
*ED COVID-19 Vaccine History Last Done: 05/08/24 12:42
ED-Skin Assessment Last Done: 05/08/24 12:48
Discharge Date and Time
Print Language: NEPALI
[2024-05-08 15:38] VITALS: BP 137/81
== END 2024-05-08 15:39 | disposition home or self-care (01) ==
LOC: EMR 12:16
PROVIDERS: EMERGENCY PHYSICIAN Emergency Medicine; FAMILY PHYSICIAN Family Medicine
DX: L25.9 Unspecified contact dermatitis, unspecified cause (principal)
CPT/HCPCS: 99283

== ENCOUNTER → 2024-06-04 15:25 | Outpatient (REF) | payer OTHER, SELFPAY | LOC: RAD 15:25 | PROVIDERS: ATTENDING PHYSICIAN Family Medicine | DX: I77.9 Disorder of arteries and arterioles, unspecified (principal); Z86.73 Personal history of transient ischemic attack (TIA), and cerebral infarction without residual deficits; H34.12 Central retinal artery occlusion, left eye | CPT/HCPCS: 93880 ==

== ENCOUNTER → 2025-01-04 10:53 | Outpatient (REF) | payer OTHER, SELFPAY | LOC: RAD 10:53 | PROVIDERS: ATTENDING PHYSICIAN Surgery Vascular Surgery; FAMILY PHYSICIAN Family Medicine | DX: I65.22 Occlusion and stenosis of left carotid artery (principal) | CPT/HCPCS: 93880 ==

== ENCOUNTER → 2025-03-29 13:03 | Outpatient (REF) | payer OTHER, SELFPAY | LOC: RAD 13:03 | PROVIDERS: ATTENDING PHYSICIAN Internal Medicine | DX: M25.552 Pain in left hip (principal) | CPT/HCPCS: 73502 ==

== ENCOUNTER → 2025-08-22 13:24 | Outpatient (REF) | payer OTHER, SELFPAY | LOC: RAD 13:24 | PROVIDERS: ATTENDING PHYSICIAN Surgery Vascular Surgery; FAMILY PHYSICIAN Family Medicine | DX: I65.22 Occlusion and stenosis of left carotid artery (principal) | CPT/HCPCS: 93880 ==

== ENCOUNTER → 2025-09-20 12:52 | Outpatient (REF) | payer OTHER, SELFPAY | LOC: HWWDC 12:52 | PROVIDERS: ATTENDING PHYSICIAN Family Medicine | DX: Z12.31 Encounter for screening mammogram for malignant neoplasm of breast (principal) | CPT/HCPCS: 77063; 77067 ==

== ENCOUNTER → 2025-10-10 09:43 | Outpatient (REF) | payer OTHER, SELFPAY | LOC: WDC 09:43 | PROVIDERS: ATTENDING PHYSICIAN Family Medicine | DX: R92.8 Other abnormal and inconclusive findings on diagnostic imaging of breast (principal) | CPT/HCPCS: 76642 ==